=== PATIENT | male | born 1945 | race Caucasian/White ===

== ENCOUNTER 2020-09-17 06:54 | Day surgery (SDC) | payer MEDICARE, SELFPAY ==
[2020-09-04 14:11] VITALS: BMI 27.4
[2020-09-17 09:43] VITALS: BP 141/83; PULSE 65; RESP 18; TEMP 35.6; O2SAT 98; BMI 27.5
[2020-09-17] MEDS: LACTATED RINGERS 1,000 ML 150 ML IV CONT (09:52)
--- NOTE | 2020-09-17 10:05 | WPDGICN ---
Assessment and Plan Assessment and plan (1) Dysphagia: Code(s): R13.10 - Dysphagia, unspecified Status: Acute Assessment and Plan: Patient has difficulty swallowing. 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 Plan is for EGD to assess for recurrent narrowing of the esophagus. Possible dilatation will be performed. Further recommendations will be given after endoscopy. (2) Gastro-esophageal reflux disease without esophagitis: Code(s): K21.9 - Gastro-esophageal reflux disease without esophagitis Status: Acute Assessment and Plan: Patient known to have acid reflux. He has been maintained on omeprazole. He continues to have breakthrough heartburn despite this medication. Plan to assess this at time of EGD. Dose of omeprazole may need to be adjusted. Strict anti-reflux measures are encouraged. GI Consult Note Consult date/time: 09/17/20 10:05 HPI: Nnamdi Pollock Jr. is a 75 year old male Complains of difficulty swallowing. Patient initially had difficulty swallowing 2011 esophageal web was identified. Since that time he has been maintained on omeprazole daily. He states he sometimes will have extra heartburn that occurs rather frequently. He supplements the omeprazole with [id number] famotidine. patient recently has begun to note food catching in the chest on swallowing. This typically occurs while speaking and not taking his time. Sometimes this will happen with bread. Her large pieces of food. Patient presents today for follow-up EGD because of difficulty swallowing. He denies any weight loss or bleeding. Review of Systems Review of Systems: All systems reviewed & are unremarkable except as noted in HPI and below PMFSH Past Medical History Medical History (Updated 09/17/20 @ 10:06 by Chris Madsen MD) CAD (coronary artery disease) Family History Family History Mother Patient's mother is , Onset Age: 95 Father Patient's father is , Onset Age: 90 Grandparent Family history of malignant neoplasm of breast Social History Social History (Updated 08/15/20 @ 14:35 by Zenia Gilbert CMA) Smoking status: Never smoker Alcohol intake: never Substance use: never Substance use type: does not use Living arrangements: with family Spiritual care concerns: No Meds Home Medications and Allergies Home Medications Medication Instructions Recorded Confirmed Type omeprazole 20 mg capsule,delayed 20 mg PO DAILY 01/17/19 09/17/20 History release famotidine 20 mg tablet 10 mg PO DAILY 05/23/19 09/17/20 History naproxen sodium 220 mg capsule 440 mg PO DAILY PRN cap 05/23/19 09/17/20 History phenylephrine HCl 10 mg tablet 10 mg PO Q4-6H PRN 05/23/19 09/17/20 History triamcinolone acetonide 0.1 % 1 applic TOPICAL QID #80 gm 06/22/19 09/17/20 Rx topical cream triamterene 37.5 0.5 tablet PO QAM #90 tablet 07/20/19 09/17/20 Rx mg-hydrochlorothiazide 25 mg tablet finasteride 5 mg tablet 5 mg PO DAILY #90 tablet 10/22/19 09/17/20 Rx nitroglycerin 0.4 mg sublingual See Rx Instructions .ROUTE 08/28/20 09/17/20 Rx tablet .COMPLEX #25 tablet aspirin 325 mg PO DAILY 09/04/20 09/17/20 History metoprolol tartrate 50 mg PO DAILY 09/04/20 09/17/20 History simvastatin 40 mg PO DAILY 09/04/20 09/17/20 History Allergies Allergy/AdvReac Type Severity Reaction Status Date / Time cephalexin Allergy Intermediate Hives / Verified 09/17/20 09:42 Red Face Vital Signs Vital Signs - 24 hr 09/17/20 09:43 Temperature 96.1 F L Pulse Rate 65 Respiratory Rate 18 Blood Pressure 141/83 H Pulse Oximetry 98 Exam Narrative: Physical exam reveals patient to be alert. Vital signs are stable. HEENT exam is unremarkable. Patient is anicteric. Lungs are clear to auscultation and percussion. Heart is without murmur
--- NOTE | 2020-09-17 10:06 | WPDANESEPPF ---
Anes - Initial Pre Proc Eval Procedure: Operation Date: 09/17/20 10:30 Proposed Procedures p Esophagogastroduodenoscopy - Alex Rodriguez MD Date/Time: 09/17/20 10:06 Surgeon: Alex Rodriguez MD Pre Op Diagnosis: dysphagia Patient Data Age: 75 Gender: M Height: 1.65 m Weight: 75.1 kg Last Vital Signs Temp 35.6 C L 09/17/20 09:43 Pulse 65 09/17/20 09:43 Resp 18 09/17/20 09:43 BP 141/83 H 09/17/20 09:43 Pulse Ox 98 09/17/20 09:43 Allergies Allergy/AdvReac Type Severity Reaction Status Date / Time cephalexin Allergy Intermediate Hives / Verified 09/17/20 09:42 Red Face Home Medications Medication Instructions Recorded Confirmed Type omeprazole 20 mg capsule,delayed 20 mg PO DAILY 01/17/19 09/17/20 History release famotidine 20 mg tablet 10 mg PO DAILY 05/23/19 09/17/20 History naproxen sodium 220 mg capsule 440 mg PO DAILY PRN cap 05/23/19 09/17/20 History phenylephrine HCl 10 mg tablet 10 mg PO Q4-6H PRN 05/23/19 09/17/20 History triamcinolone acetonide 0.1 % 1 applic TOPICAL QID #80 gm 06/22/19 09/17/20 Rx topical cream triamterene 37.5 0.5 tablet PO QAM #90 tablet 07/20/19 09/17/20 Rx mg-hydrochlorothiazide 25 mg tablet finasteride 5 mg tablet 5 mg PO DAILY #90 tablet 10/22/19 09/17/20 Rx nitroglycerin 0.4 mg sublingual See Rx Instructions .ROUTE 08/28/20 09/17/20 Rx tablet .COMPLEX #25 tablet aspirin 325 mg PO DAILY 09/04/20 09/17/20 History metoprolol tartrate 50 mg PO DAILY 09/04/20 09/17/20 History simvastatin 40 mg PO DAILY 09/04/20 09/17/20 History Patient hx anesthesia problems: none Family hx anesthesia problems: none PMFSH Past Medical History Medical History (Updated 09/17/20 @ 10:06 by Chris Madsen MD) CAD (coronary artery disease) Family History Family History Mother Patient's mother is , Onset Age: 95 Father Patient's father is , Onset Age: 90 Grandparent Family history of malignant neoplasm of breast Social History Social History Smoking status: Never smoker Alcohol intake: never Substance use: never Substance use type: does not use Living arrangements: with family Spiritual care concerns: No Anes - Eval Final PreProcedure Day of Procedure 09/17/20 10:06 Patient weight: overweight Heart: regular rate and rhythm Lungs: clear to auscultation Airway: Mallampati scale class II Neurological: alert and oriented Last oral intake: >/= 8 hours ASA classification: III Emergent: no Anesthetic plan: proceed Anesthesia type and monitoring: general GIVS and standard monitoring Informed Consent: The patient's anesthetic plan and its attendant risks and benefits were discussed with the patient/family/POA. Questions were solicited and answers provided to the satisfaction of the patient/family/POA.
[2020-09-17] MEDS: BENZOCAINE (*SP) 60 ML SPRAY CAN (HURRICAINE) 1 SPRAY MUCOUS MEM (10:12)
[2020-09-17 10:25] VITALS: BP 137/76; PULSE 57; RESP 22; O2SAT 96
[2020-09-17 10:35] VITALS: BP 133/76; PULSE 55; RESP 20; O2SAT 96
[2020-09-17 10:45] VITALS: BP 141/84; PULSE 55; RESP 16; O2SAT 97
== END 2020-09-17 11:00 | disposition home or self-care (01) ==
PROVIDERS: PCP Family Medicine; Visit Provider Internal Medicine Gastroenterology
PROC: 0DJ08ZZ Inspection of Upper Intestinal Tract, Via Natural or Artificial Opening Endoscopic (ICD-10-PCS; CPT 43235; principal; 2020-09-17 10:30)
DX: Q39.4 Esophageal web (principal); K21.00 Gastro-esophageal reflux disease with esophagitis, without bleeding; I25.10 Atherosclerotic heart disease of native coronary artery without angina pectoris; Z79.82 Long term (current) use of aspirin
CPT/HCPCS: 43450; 43235; J7120

== ENCOUNTER 2021-03-30 15:22 | Observation (INO) | payer MEDICARE, SELFPAY ==
[2021-03-30] VITALS (12 sets, daily range): BP systolic 140–181; BP diastolic 80–97; PULSE 64–102; RESP 16–19; TEMP 36–36.7; O2SAT 97–99; BMI 27.6
--- NOTE | ~2021-03-30 | CT_ITS ---
EXAMINATION: CT lumbar spine wo con DATE: 03/30/2021 18:42 INDICATION: Low back pain TECHNIQUE: Computed tomography (CT) of the lumbar spine was performed without intravenous contrast. T he dose-length product (DLP) was 624.56 mGy-cm. Iterative reconstruction was used. COMPARISON: None FINDINGS: There are 2 mm of retrolisthesis of L2 on L3. The vertebral body heights are maintained. Th ere is severe loss of intervertebral disc space height throughout the lumbar spine and at T11-12. The re is moderate facet osteoarthritis. There are 25 degrees of lumbar dextroscoliosis. IMPRESSION: 1. Severe lumbar spondylosis without acute findings. Reviewed, dictated and finalized at location F. GATION SERVICES MANAGER
--- NOTE | ~2021-03-30 | CT_ITS ---
EXAMINATION: CT brain wo con INDICATION: Left-sided weakness COMPARISON: 01/26/2012 TECHNIQUE: Standard unenhanced head CT. The dose-length product (DLP) was 605.33 mGy-cm. The mA was a djusted according to patient size. Iterative reconstruction technique was employed. FINDINGS: There is no acute intraparenchymal hemorrhage. No evidence of mass lesion. There is hypoatt enuation in the anterior periventricular white matter of the left frontal lobe. There is mild periven tricular and subcortical hypodensity probably related to small vessel ischemic disease. There is mild prominence of the sulci and ventricles related to cerebral atrophy. Intracranial calcified cerebral atherosclerosis is noted. There are no extra-axial collections. There is no mass effect or midline sh ift. Changes in the globes are likely from ocular lens surgery. There is mild mucosal thickening of t he paranasal sinuses. IMPRESSION: 1. Hypoattenuation in the anterior periventricular white matter of the left frontal lobe, consistent with age indeterminate infarct. 2. Age related findings. Reviewed, dictated and finalized at location F. R SYSTEMS ADMINISTRATOR IMPRESSION: 1. Hypoattenuation in the anterior periventricular white matter of the left fro ntal lobe, consistent with age indeterminate infarct. 2. Age related findings.
--- NOTE | ~2021-03-30 | XR_ITS ---
EXAMINATION: XR chest 2V DATE: 03/30/2021 18:28 INDICATION: Left-sided weakness TECHNIQUE: PA and lateral views of the chest are obtained. COMPARISON: 10/26/2018 FINDINGS: The lungs are free of acute opacities. There is no pleural effusion or pneumothorax. The ca rdiomediastinal silhouette is normal. There is severe thoracic spondylosis. IMPRESSION: 1. No acute cardiopulmonary abnormality. Reviewed, dictated and finalized at location F. ATTACHER
--- NOTE | ~2021-03-30 | CT_ITS ---
EXAMINATION: CTA brain carotid DATE: 03/30/2021 19:46 INDICATION: Left-sided weakness, age indeterminate infarct TECHNIQUE: Computed tomographic angiography (CTA) of the head was performed without and with 100 mL O mnipaque-350 intravenous contrast. CTA of the neck was performed with intravenous contrast. The dose- length product was 1087.69 mGy-cm. Maximum intensity projection and volume rendered 3D-reconstruction s were created by the technologist on a separate workstation. Automated exposure control and iterativ e reconstruction technique were employed. COMPARISON: 03/29/2011 FINDINGS: HEAD CTA: There is no acute intraparenchymal hemorrhage. No evidence of mass lesion. A small area of hypoattenuation is again noted in the anterior periventricular white matter of the left frontal lobe. There is mild periventricular and subcortical hypodensity probably related to small vessel ischemic disease. There is mild prominence of the sulci and ventricles related to cerebral atrophy. Intracrani al calcified cerebral atherosclerosis is noted. There are no extra-axial collections. There is no mas s effect or midline shift. Changes in the globes are likely from ocular lens surgery. The visualized sinuses and mastoid air cells are well aerated. There is no significant stenosis of the basilar artery or posterior cerebral arteries. There is no si gnificant stenosis of the intracranial internal carotid arteries or the anterior or middle cerebral a rteries. The anterior communicating artery and posterior communicating arteries are normal. There is no aneurysm. NECK CTA: The thyroid gland is unremarkable. The submandibular and parotid glands are symmetric. Ther e is no lymphadenopathy. There are no masses identified. The airway is unremarkable. There is severe cervical spondylosis. The superior mediastinum is unremarkable. There is 0% stenosis of the proximal right internal carotid artery relative to normal distal artery l umen diameter (NASCET criteria). There is 49% stenosis of the proximal left internal carotid artery r elative to normal distal artery lumen diameter. IMPRESSION: 1. Unchanged small area of hypoattenuation in the anterior periventricular white matter of the left f rontal lobe. Normal head CTA. 2. 0% stenosis of the proximal right internal carotid artery relative to normal distal artery lumen d iameter (NASCET criteria). 3. 49% stenosis of the proximal left internal carotid artery relative to normal distal artery lumen d iameter. Reviewed, dictated and finalized at location F. TRACK KENNEL MANAGER IMPRESSION: 1. Unchanged small area of hypoattenuation in the anterior periventricular whit e matter of the left frontal lobe. Normal head CTA. 2. 0% stenosis of the proximal right internal carotid artery relative to normal distal artery lumen diameter (NASCET criteria). 3. 49% stenosis of the proximal left internal carotid artery relative to normal distal artery lumen diameter.
--- NOTE | ~2021-03-30 | MR_ITS ---
EXAMINATION: MR brain/brain stem wo con EXAM DATE: 03/31/2021 10:19 INDICATION: LLE/LUE weakness TECHNIQUE: Magnetic resonance imaging (MRI) of the brain/brain stem obtained without contrast. Liam al T1, axial diffusion, gradient echo (T2*), T1, T2, FLAIR sequences obtained. Correlation is made t o CTA brain carotid from yesterday. FINDINGS: There is 4 x 10 mm acute infarction in the right centrum semiovale, frontoparietal white ma tter. Small old infarction involving the left anterior aspect of the corpus callosum. There is mild t o moderate white matter hyperintensity which is nonspecific but statistically most likely microangiop athy given patient's age. Flow voids are seen in the cerebral arteries on the T2 weighted sequences c onsistent with their expected patency. There is no acute hemorrhage seen on the T2*, a susceptibility sensitive sequence. Bilateral cataract surgery. Dilated perivascular spaces in the deep goel matter . No brain mass or extra-axial collections. No obstructive hydrocephalus. IMPRESSION: 1. Small acute right centrum semiovale infarction. 2. 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 3. 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 Reviewed, dictated and finalized at location A. LIANCE TECHNICIAN
--- NOTE | 2021-03-30 15:58 | PC.NURSE ---
pt seen ambulating in parking lot aware from hospital. danie schwartz, stated patient told her he was going to get his medicine. danie schwartz, told patient we were unable to hold patient spot if he left.
--- NOTE | 2021-03-30 16:34 | PC.NURSE ---
pt noted to be back in lobby
--- NOTE | 2021-03-30 18:07 | ECG_ITS ---
Measurements Intervals [place] Rate: 82 P: 43 MT: 271 QRS: 29 QRSD: 107 T: 4 QT: 376 QTc: 441 Interpretive Statements SINUS RHYTHM WITH FIRST DEGREE AV BLOCK POSSIBLE LEFT ATRIAL ENLARGEMENT CANNOT RULE OUT SEPTAL INFARCT, AGE INDETERMINATE BORDERLINE ST-T WAVE ABNORMALITY- INFERIOR LEADS BASELINE ARTIFACT- AVR, V1 ABNORMAL ECG Electronically Signed On 03-31-2021 10:14:35 RECORD PRODUCER by Lalo Hernández D.O.
--- NOTE | 2021-03-30 18:18 | ED.WEAKNESS ---
HPI - Weakness General Chief complaint: Weakness <Rafaela Ambrocio PA-C - Last Filed: 03/30/21 20:07> Stated complaint: L side weakness since yesterday morning <HEIDI Saini Last Filed: 03/30/21 20:07> Time Seen by Provider: 03/30/21 18:06 <HEIDI Saini Last Filed: 03/30/21 20:07> Source: patient <HEIDI Saini Last Filed: 03/30/21 20:07> Mode of arrival: ambulatory <HEIDI Saini Last Filed: 03/30/21 20:07> Limitations: no limitations <HEIDI Saini Last Filed: 03/30/21 20:07> History of Present Illness HPI Narrative: This is a 75 year old male that presents to the ER for left sided weakness since yesterday. Reports he has noticed some coordination problems with the left arm. Reports he feels like he has to drag his left leg. He called his PCP to make an appointment today who prompted him to be seen in the ER. No recent injuries. Denies vision changes, chest pain, shortness of breath, or other numbness or weakness. <HEIDI Saini Last Filed: 03/30/21 20:07> Related Data Home medications: Home Medications Medication Instructions Recorded Confirmed omeprazole 20 mg capsule,delayed 20 mg PO DAILY 01/17/19 12/23/20 release aspirin 325 mg PO DAILY 09/04/20 12/23/20 simvastatin 40 mg PO DAILY 09/04/20 12/23/20 <HEIDI Saini Last Filed: 03/30/21 20:07> Allergies/Adverse reactions: Allergies Allergy/AdvReac Type Severity Reaction Status Date / Time cephalexin Allergy Intermediate Hives / Verified 12/23/20 11:51 Red Face <HEIDI Saini Last Filed: 03/30/21 20:07> Review of Systems Review of Systems: CONSTITUTIONAL: Denies fever EYES: Denies visual changes CARDIOVASCULAR: Denies chest pain, or edema. RESPIRATORY: Denies dyspnea. GASTROINTESTINAL: Denies abdominal pain, nausea, vomiting GENITOURINARY: Denies dysuria MUSCULOSKELETAL: Reports back pain, joint pain, and myalgia. NEUROLOGIC: Reports weakness. <Rafaela Ambrocio PA-C - Last Filed: 03/30/21 20:07> All systems reviewed & are unremarkable except as noted in HPI and below <Rafaela Ambrocio PA-C - Last Filed: 03/30/21 20:07> [facility] Past Medical History Medical History: Medical History (Updated 03/30/21 @ 20:06 by Rafaela Ambrocio PA-C) Abnormal TSH Abnormal TSH CAD (coronary artery disease) <Rafaela Ambrocio PA-C - Last Filed: 03/30/21 20:07> Family History Family History: Family History Mother Patient's mother is , Onset Age: 95 Father Patient's father is , Onset Age: 90 Grandparent Family history of malignant neoplasm of breast <Rafaela Ambrocio PA-C - Last Filed: 03/30/21 20:07> Social History Social History: Social History Smoking status: Never smoker Alcohol intake: never Substance use: never Substance use type: does not use Spiritual care concerns: No <Rafaela Ambrocio PA-C - Last Filed: 03/30/21 20:07> Exam Narrative: GENERAL: Well-appearing, well-nourished, and in no acute distress. HEAD: Normocephalic, atraumatic. EYES: PERRLA and EOMI. ENT: Nares clear, no rhinorrhea or epistaxis. Mucous membranes moist. Oropharynx without tonsillar hypertrophy exudate or other lesions. Bilateral TMs pearly goel non-bulging NECK: Supple. No adenopathy or masses. CHEST: Clear to auscultation. No respiratory distress. No wheezes rales or rhonchi HEART: Regular rate and rhythm. No murmur heard. Normal peripheral pulses. ABDOMEN: Soft, nontender, nondistended, normal active bowel sounds. EXTREMITIES: Normal range of motion. No edema. Strength equal in bilateral upper and lower extremities (5/5) SKIN: Warm, dry, no rash. NEURO: No focal deficits. Alert and oriented x3. Cranial nerves II through XII grossly intact. Difficulty with finger-to-
[2021-03-30 18:32] LABS: Basophils Percent Auto 0.4 % (0.2-1.2); Eosinophils Absolute Auto 0.2 K/mm3 (0-0.3); Eosinophils Percent Auto 1.8 % (0-4.4); Hemoglobin 15.9 g/dL (14.0-18.0); Immature Granulocyte Absolute 0.07 K/mm3 (0.00-0.031); Immature Granulocyte Percent A 0.8 % (0-0.5); Lymphocytes Absolute Auto 1.32 K/mm3 (0.9-3.2); Lymphocytes Percent Auto 15.8 % (18.3-44.2); Mean Corpuscular HGB Conc 33.1 g/dl (32-36); Mean Corpuscular Hemoglobin 30.2 pg (26-34); Mean Corpuscular Volume 91.3 fl (80-100); Mean Platelet Volume 10.2 fl (7.4-10.4); Monocytes Absolute Auto 0.7 K/mm3 (0.1-0.6); Monocytes Percent Auto 8.3 % (2.6-8.5); Neutrophils Absolute Auto 6.1 K/mm3 (1.3-6.7); Neutrophils Percent Auto 72.9 % (45.5-73.1); Platelet Count Result 240 k/mm3 (150-375); Red Blood Count 5.26 M/mm3 (4.6-6.20); Red Cell Distribution Width 12.8 % (11.5-14.5); White Blood Count 8.4 K/mm3 (4.5-10.0)
[2021-03-30 18:51] LABS: Alanine Aminotransferase 33 U/L (4-50); Albumin Level 4.8 g/dL (3.5-5.1); Alkaline Phosphatase 87 U/L (38-126); Anion Gap 6 mmol/L (8-16); Aspartate Amino Transferase 41 U/L (17-59); Bilirubin,Total 0.7 mg/dL (0.2-1.3); Blood Urea Nitrogen 27 mg/dL (9-20); Calcium 9.9 mg/dL (8.4-10.2); Carbon Dioxide 28 mmol/L (22-30); Chloride 102 mmol/L (98-107); Estimated CRCL calculation 53 ml/min; Estimated Glomerular Filt Rate > 60; Glucose 102 mg/dL (65-110); Potassium 3.8 mmol/L (3.4-5.0); Sodium 136 mmol/L (137-145)
--- NOTE | 2021-03-30 19:38 | PM.IMHP ---
H&P: HPI History of Present Illness Date/Time: 03/30/21 19:38 Chief Complaint: Left lower extremity weakness. Narrative: [age]-year-old male history significant for sciatica, hypertension, dyslipidemia, GERD. PATIENT PRESENTS TO THE EMERGENCY ROOM WITH COMPLAINTS OF LEFT-SIDED WEAKNESS SPECIFICALLY LEFT LOWER EXTREMITY AND LEFT UPPER EXTREMITY. However upon further questioning patient states that he has sciatica and had shooting pain in going down his leg earlier in the week at the time of my visit patient did not have any overuse weakness as he was able to stand up on his on and take couple of steps patient has been his usual state of health he denies any fevers, rigors ,chills ,cough, sputum production, nausea, vomiting, abdominal pain, diarrhea ,no dizziness ,no syncope, no near syncope, no vision changes, no chest pain, no palpitations, no falls ,no urinary incontinence or fecal incontinence or retention. Preliminary workup was significant for CT of the head with age indeterminate infarct. Imaging of the pelvis shows severe spondylosis and spinal stenosis. Patient is being admitted for evaluation management and treatment. Review of Systems Review of Systems: Left-sided weakness Constitutional: Constitutional: Denies chills, Denies fatigue, Denies fever(s), Denies malaise, Denies night sweats and Reports weakness Eyes: Eyes: Denies change in vision ENT: Denies dysphagia, Denies vertigo, Denies dizziness, Denies headache(s), Denies nasal congestion, Denies nasal discharge, Denies nasal obstruction and Denies odynophagia Cardiovascular: Cardiovascular: Denies chest pain, Denies pedal edema, Denies claudication, Denies leg edema, Denies radiating jaw, neck or arm pain, Denies palpitations, Denies dyspnea on exertion and Denies orthopnea Respiratory: Respiratory: Denies cough and Denies dyspnea Gastrointestinal: Gastrointestinal: Denies abdominal pain, Denies dyspepsia, Denies heartburn, Denies diarrhea, Denies nausea and Denies vomiting Genitourinary: Genitourinary: Denies dysuria Musculoskeletal: Musculoskeletal: Denies back pain, Denies arthralgias, Denies joint swelling, Reports muscle weakness and Reports radiating pain into limb (Sciatica) Integumentary/Breasts: Skin/Breast: Denies rash Neurologic: Denies abnormal gait, Denies vertigo, Denies dizziness, Denies syncope, Denies focal weakness, Reports radicular pain and Denies Sensory deficit (Neuro) Psychiatric: Psychiatric: Reports no additional psychiatric complaints and Reports as per HPI Endocrine: Endocrine: Denies cold intolerance, Denies deepening of the voice, Denies heat intolerance, Denies increase in ring/shoe/hat size, Denies polyphagia, Denies polydipsia and Denies polyuria Hematologic/Lymphatic: Hematologic/Lymphatic: Reports no additional hematologic/lymphatic complaints and Reports as per HPI Allergic/Immunologic: Allergic/Immunologic: Reports no additional allergic/immunologic complaints and Reports as per HPI [facility] Past Medical History Medical History (Updated 03/30/21 @ 20:06 by Rafaela Ambrocio PA-C) Abnormal TSH Abnormal TSH CAD (coronary artery disease) Family History Family History Mother Patient's mother is , Onset Age: 95 Father Patient's father is , Onset Age: 90 Grandparent Family history of malignant neoplasm of breast Social History Social History Smoking status: Never smoker Alcohol intake: never Substance use: never Substance use type: does not use Spiritual care concerns: No Meds Home Medications and Allergies Home Medications Medication Instructions Recorded Confirmed Type omeprazole 20 mg capsule,delayed 40 mg PO DAILY 01/17/19 03/30/21 History release finasteride 5 mg tablet 5 mg PO DAILY #90 tablet 10/22/19 03/30/21 Rx nitroglycerin 0.4 mg sublingual See Rx I
[2021-03-30] MEDS: METOPROLOL SUCCINATE EXT REL 50 MG TABCR PO (19:58)
[2021-03-30 20:13] LABS: Prothrombin Time 13.2 Seconds (11.1-14.7)
[2021-03-30 20:14] LABS: Partial Thromboplastin Time 32.2 SECONDS (22.3-36.8)
[2021-03-30 20:25] LABS: Add Urine Microscopic? NO; Appearance Urine Clear (Clear); Bilirubin Urine Negative (Negative); Blood Urine Negative (Negative); Color Urine Straw (Yellow); Glucose Urine UA Negative (Negative); Ketones Urine Negative (Negative); Leukocyte Esterase Ur Negative LEU/UL (Negative); Nitrate Urine Negative (Negative); Protein Urine Negative (Negative); Urobilinogen Urine Negative mg/dL (<2.0)
[2021-03-30 20:52] LABS: SARS-CoV-2 RNA PCR Negative
--- NOTE | 2021-03-30 22:50 | ADMGEN ---
This patient, Nnamdi Pollock Jr., was admitted to Medical Room 251-01. Patient/family oriented to hospital policies and general routines including ID bracelet, bed and alarms, visiting hours, pain management, procedures, bathroom and other care routines, personal items, smoking policy, room service/diet, and visiting hours. Information on how to activate the Rapid Response Team has been discussed. Patient/Family are encouraged to report perceived risks to care and to ask questions if they do not understand what they are told or what they should do.
[2021-03-31] VITALS (10 sets, daily range): BP systolic 137–160; BP diastolic 64–73; PULSE 56–71; RESP 16–17; TEMP 36.4–36.6; O2SAT 97–99
--- NOTE | 2021-03-31 | ECHO_ITS ---
Patient Info Name: Nnamdi Pollock Age: 75 years : 1945 Gender: Male Ht: 65 in Wt: 166 lbs BSA: 1.88 m2 HR: 65 bpm BP: 137 / 64 mmHg Heart Rhythm: Sinus Rhythm Exam Date: 03/31/2021 11:48 AM Exam Location: [facility] Patient Status: Outpatient Admit Date: 03/30/2021 Staff Ordering Physician: Gordy Moya MD Photographer Still: Jak Mejia, MELODYCS, RT Attending Provider: Tremayne Delarosa MD Exam Type: CA echo doppler color flow Study Info Indications I63.219 - Cerebral infarction due to unspecified occlusion or stenosis of unspecified vertebral arteries Complete two-dimensional, color flow and Doppler transthoracic echocardiogram is performed. Strain analysis performed. Summary 1. Complete two-dimensional, color flow and Doppler transthoracic echocardiogram is performed. 2. LV size is at upper limits of normal; sigmoid hypertrophy; normal LV systolic function, ejection fraction 55-60%. Normal diastolic function. Mild left atrial enlargement. Normal mitral valve structure, no significant MR. Normal aortic valve structure, mild aortic regurgitation; no hemodynamically significant stenosis. Trace TR, unable to assess RVSP due to inadequate TR jet. Sinus rhythm. Left Ventricle Left ventricular chamber dimension is normal. Left ventricular systolic function is normal, estimated at 55-60%. There is no increased left ventricular wall thickness. The left ventricular diastolic function is grade I diastolic dysfunction. Right Ventricle Right ventricular chamber dimension is normal. Right ventricular systolic function is normal. Left Atria Left atrial chamber dimension is mildly enlarged. Right Atria Right atrial chamber dimension is normal. Aortic Valve There is no aortic valve stenosis. There is mild aortic valve regurgitation. Pulmonic Valve The pulmonic valve is not well visualized. There is trace pulmonic regurgitation. Mitral Valve The mitral valve has normal leaflets. There is no mitral valve regurgitation. Tricuspid Valve The tricuspid valve leaflets are normal. There is trace tricuspid valve regurgitation. Pericardium/Pleural The pericardium appears normal. There is trivial pericardial effusion. Aorta The aortic root size at the sinus of Valsalva is normal. Left Ventricular Outflow Tract Name Value Normal LVOT 2D LVOT Diameter 2.0 cm LVOT Doppler LVOT Peak Gradient 7 mmHg LVOT Mean Gradient 4 mmHg LVOT VTI 29 cm LVOT VTI/AV VTI Ratio 0.9 LVOT Stroke Volume 95 ml LVOT CO 5.7 l/min LVOT CI 3.0 l/min/m2 Mitral Valve Name Value Normal MV Doppler MV Decel [place] 333 cm/s2
--- NOTE | 2021-03-31 09:22 | PM.IMPN ---
Progress Note: A&P Assessment and Plan (1) CVA (cerebral vascular accident): Qualifiers: CVA mechanism: unspecified Qualified Code(s): I63.9 - Cerebral infarction, unspecified Code(s): I63.9 - Cerebral infarction, unspecified Status: Acute Assessment and Plan: presents with left lower extremity weakness, +/- upper extremity weakness questionable stroke not a candidate for tPA or vascular intervention Already on aspirin 325 mg daily and statin at home. Will check A1c and lipid profile Consider adding Plavix MRI of the brain ordered and pending. If negative for stroke likely due to with exacerbation of his chronic back pain which will need outpatient evaluation For the stroke workup with echo Head CT with small area of hypoattenuation in the anterior periventricular white matter of the left frontal lobe Head and neck CTA with 49% left ICA 0% right ICA Neurology has been consulted await their recommendations Blood pressure was elevated on admission to allow permissive hypertension EKG with sinus rhythm with first-degree AV block (2) Hypertension: Qualifiers: Hypertension type: unspecified Qualified Code(s): I10 - Essential (primary) hypertension Code(s): I10 - Essential (primary) hypertension Status: Acute Assessment and Plan: elevated on admission Allow permissive hypertension until stroke ruled out Need long-term blood pressure control with goal blood pressure less than 130/80 (3) Essential (primary) hypertension: Code(s): I10 - Essential (primary) hypertension Status: Acute (4) Atherosclerotic heart disease of [place] coronary artery without angina pectoris: Qualifiers: [place] vs. transplanted heart: [place] heart Qualified Code(s): I25.10 - Atherosclerotic heart disease of [place] coronary artery without angina pectoris Code(s): I25.10 - Atherosclerotic heart disease of [place] coronary artery without angina pectoris Status: Acute Assessment and Plan: history of coronary artery disease status post stents right coronary artery January of 2012. Chest pain-free (5) Mixed hyperlipidemia: Code(s): E78.2 - Mixed hyperlipidemia Status: Acute Assessment and Plan: Continue statin Lipid profile 05/28: 139/ 53/63/ 148 Recheck lipid profile LDL at goal of less than 70 ( 63 ) (6) Gastro-esophageal reflux disease without esophagitis: Code(s): K21.9 - Gastro-esophageal reflux disease without esophagitis Status: Acute Assessment and Plan: PPI as needed (7) Lumbar spondylosis: Code(s): M47.816 - Spondylosis without myelopathy or radiculopathy, lumbar region Status: Acute Assessment and Plan: severe noted on lumbar CT done on 03/30/2021 Additional Plan History of mild hypertrophic cardiomyopathy Subjective Date/time seen: 03/31/21 09:22 Interval history: HPI:[age]-year-old male history significant for sciatica, hypertension, dyslipidemia, GERD. PATIENT PRESENTS TO THE EMERGENCY ROOM WITH COMPLAINTS OF LEFT-SIDED WEAKNESS SPECIFICALLY LEFT LOWER EXTREMITY AND LEFT UPPER EXTREMITY. However upon further questioning patient states that he has sciatica and had shooting pain in going down his leg earlier in the week at the time of my visit patient did not have any overuse weakness as he was able to stand up on his on and take couple of steps patient has been his usual state of health he denies any fevers, rigors ,chills ,cough, sputum production, nausea, vomiting, abdominal pain, diarrhea ,no dizziness ,no syncope, no near syncope, no vision changes, no chest pain, no palpitations, no falls ,no urinary incontinence or fecal incontinence or retention. Preliminary workup was significant for CT of the head with age indeterminate infarct. Imaging of the pelvis shows severe spondylosis and spinal stenosis. Patient is being admitted for evaluation management and treatment.
[2021-03-31 09:58] LABS: Cholesterol 161 mg/dL (0-200); HDL Direct 46 mg/dL; Triglycerides 168 mg/dL (<150)
[2021-03-31 10:09] LABS: LDL Cholesterol Direct 85 mg/dL
[2021-03-31 10:33] LABS: Hemoglobin A1C 5.5 % (<5.7)
[2021-03-31] MEDS: FINASTERIDE 5 MG TABLET PO (12:13)
[2021-03-31] MEDS: MULTIVITAMINS THERAPEUTIC TAB (*BKC) 1 TABLET BY MOUTH (12:13)
[2021-03-31] MEDS: PANTOPRAZOLE 40 MG TABLET PO (12:13)
[2021-03-31] MEDS: TRIAMTERENE/HCTZ 18.75/12.5 MG TABLET 1 TAB BY MOUTH (12:13)
[2021-03-31] MEDS: ASPIRIN 325 MG TABLET PO (12:13)
[2021-03-31] MEDS: CALCIUM CARBONATE (OSCAL) 500 MG TABLET PO (12:13)
--- NOTE | 2021-03-31 12:21 | WPDNEURCNPN ---
Assessment and Plan Additional Plan 1 cerebrovascular accident documented by the CT scan as well as the MRI 2 hypertension 3 intermittent chronic low back pain with spinal spondylosis without stenosis to warrant the acute surgical intervention, patient has been receiving aspirin 325 mg daily, simvastatin 40 mg HS, will obtain the echocardiogram to rule out the possibility of the coincidental cardiac involvement in meantime treatment will be continued as such, Consult date: 03/31/21 HPI: Nnamdi Pollock Jr. is a 75 year old male Has been admitted to [facility] through the emergency room for the complaints of left lower extremity pain and weakness in addition to the ongoing history of 1. Hypertension 2. Dyslipidemia 3. GERD, and with no history of smoking or drinking. Patient complained of the weakness of left lower extremity and left upper extremity but on further questioning in the emergency room he mentioned that his he is suffering from sciatica and shooting pain down to his lower extremity in this week he was able to stand and take a couple of steps and gave no history of any other generalized symptomatology. 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 and small acute right cerebellar semi ov[place] infarction and the lumbar CT scan documented severe lumbar spondylosis without any acute finding only 2mm of retro listhesis of L2 on L3, routine blood studies were normal except that SARS-CoV-2 aid was also negative Review of Systems Review of Systems: All systems reviewed & are unremarkable except as noted in HPI and below PMFSH Past Medical History Medical History Abnormal TSH Abnormal TSH CAD (coronary artery disease) Family History Family History Mother Patient's mother is , Onset Age: 95 Father Patient's father is , Onset Age: 90 Grandparent Family history of malignant neoplasm of breast Social History Social History Smoking status: Never smoker Alcohol intake: never Substance use: never Substance use type: does not use Spiritual care concerns: No Meds Home Medications and Allergies Home Medications Medication Instructions Recorded Confirmed Type omeprazole 20 mg capsule,delayed 40 mg PO DAILY 01/17/19 03/30/21 History release finasteride 5 mg tablet 5 mg PO DAILY #90 tablet 10/22/19 03/30/21 Rx nitroglycerin 0.4 mg sublingual See Rx Instructions .ROUTE 08/28/20 03/30/21 Rx tablet .COMPLEX #25 tablet aspirin 325 mg PO DAILY 09/04/20 03/30/21 History simvastatin 40 mg PO HS 09/04/20 03/30/21 History triamterene 37.5 See Rx Instructions .ROUTE 12/19/20 03/30/21 Rx mg-hydrochlorothiazide 25 mg tablet .COMPLEX #45 tablet metoprolol succinate 50 mg 50 mg PO DAILY #90 tablet 12/23/20 03/30/21 Rx tablet,extended release 24 hr Complete Multi 1 tablet BYMOUTH DAILY 03/30/21 03/30/21 History Suphedrine PE Sinus andAllergy 1 tablet PO Q4-5H PRN 03/30/21 03/30/21 History calcium 600 mg PO DAILY 03/30/21 03/30/21 History Allergies Allergy/AdvReac Type Severity Reaction Status Date / Time cephalexin Allergy Intermediate Hives / Verified 12/23/20 11:51 Red Face Vital Signs Vital Signs - 24 hr 03/30/21 15:33 03/30/21 17:16 03/30/21 18:15 Temperature 36.7 C 36.5 C Pulse Rate 102 H 86 86 Respiratory Rate 19 16 Blood Pressure 161/92 H 166/95 H 181/97 H Pulse Oximet
--- NOTE | 2021-03-31 16:02 | PC.NURSE ---
On 03/11/21, the student, Sukhwinder Davis provided care and completed [employer] documentation on this patient. I have reviewed the student's documentation and agree with the findings
[2021-03-31] MEDS: SIMVASTATIN 20 MG TABLET 40 MG PO (21:00)
[2021-04-01] VITALS (8 sets, daily range): BP systolic 133–138; BP diastolic 73–78; PULSE 61–81; RESP 16–17; TEMP 36.4–36.6; O2SAT 97–98
[2021-04-01 06:14] LABS: Basophils Percent Auto 0.5 % (0.2-1.2); Eosinophils Absolute Auto 0.3 K/mm3 (0-0.3); Eosinophils Percent Auto 4.4 % (0-4.4); Hematocrit 47.9 % (42.0-52.0); Hemoglobin 15.9 g/dL (14.0-18.0); Immature Granulocyte Absolute 0.08 K/mm3 (0.00-0.031); Lymphocytes Absolute Auto 1.72 K/mm3 (0.9-3.2); Lymphocytes Percent Auto 22.4 % (18.3-44.2); Mean Corpuscular HGB Conc 33.2 g/dl (32-36); Mean Corpuscular Hemoglobin 30.3 pg (26-34); Mean Corpuscular Volume 91.2 fl (80-100); Mean Platelet Volume 10.3 fl (7.4-10.4); Monocytes Absolute Auto 0.7 K/mm3 (0.1-0.6); Monocytes Percent Auto 9.5 % (2.6-8.5); Neutrophils Absolute Auto 4.8 K/mm3 (1.3-6.7); Neutrophils Percent Auto 62.2 % (45.5-73.1); Platelet Count Result 228 k/mm3 (150-375); Red Blood Count 5.25 M/mm3 (4.6-6.20); White Blood Count 7.7 K/mm3 (4.5-10.0)
[2021-04-01 06:33] LABS: Alanine Aminotransferase 27 U/L (4-50); Albumin Level 4.4 g/dL (3.5-5.1); Alkaline Phosphatase 75 U/L (38-126); Anion Gap 6 mmol/L (8-16); Aspartate Amino Transferase 35 U/L (17-59); Bilirubin,Total 1.1 mg/dL (0.2-1.3); Blood Urea Nitrogen 21 mg/dL (9-20); Calcium 9.4 mg/dL (8.4-10.2); Carbon Dioxide 31 mmol/L (22-30); Chloride 100 mmol/L (98-107); Estimated CRCL calculation 48 ml/min; Estimated Glomerular Filt Rate > 60; Glucose 102 mg/dL (65-110); Potassium 4.2 mmol/L (3.4-5.0); Sodium 137 mmol/L (137-145)
[2021-04-01] MEDS: ASPIRIN 325 MG TABLET PO (08:30)
[2021-04-01] MEDS: METOPROLOL SUCCINATE EXT REL 50 MG TABCR PO (08:31)
[2021-04-01] MEDS: CALCIUM CARBONATE (OSCAL) 500 MG TABLET PO (08:31)
[2021-04-01] MEDS: TRIAMTERENE/HCTZ 18.75/12.5 MG TABLET 1 TAB BY MOUTH (08:31)
[2021-04-01] MEDS: MULTIVITAMINS THERAPEUTIC TAB (*BKC) 1 TABLET BY MOUTH (08:31)
[2021-04-01] MEDS: FINASTERIDE 5 MG TABLET PO (08:31)
[2021-04-01] MEDS: PANTOPRAZOLE 40 MG TABLET PO (08:32)
--- NOTE | 2021-04-01 10:59 | PM.DS ---
DS: Admitting Diagnosis Discharge Date 04/01/2021 Admitting Diagnosis Left upper and lower extremity weakness DS: Discharge Diagnosis Discharge Diagnosis (1) CVA (cerebral vascular accident): Qualifiers: CVA mechanism: unspecified Qualified Code(s): I63.9 - Cerebral infarction, unspecified Code(s): I63.9 - Cerebral infarction, unspecified Status: Acute Assessment and Plan: presents with left lower extremity weakness, +/- upper extremity weakness not a candidate for tPA or vascular intervention Already on aspirin 325 mg daily and statin at home. Check A1c which was normal in lipid profile with LDL of 85 MRI of the brain ordered and showed acute infarct in right centrum semiovale. His symptoms aligns with noted infarction. CTA with 49% stenosis in left ICA not relating to current stroke. Echocardiogram with no PFO or thrombus. He is already on aspirin 325 mg daily while getting the stroke. No history of smoking Discussed addition of Plavix with the patient and agreeable Will lower aspirin to 81 mg daily and continue Plavix 75 mg daily at the time of discharge. LDL is 85 the goal LDL will be less than 7 T due to his new stroke. She is he is currently on simvastatin 40 mg daily. Will suggest at least moderate to high intensity statin and will switch to atorvastatin [address] with small area of hypoattenuation in the anterior periventricular white matter of the left frontal lobe Head and neck CTA with 49% left ICA 0% right ICA Neurology has been consulted and appreciate his recommendations Blood pressure was elevated on admission to allow permissive hypertension blood pressure has been fluctuant he also takes Sudafed on a regular basis for his sinuses and suggested this medication could cause or exacerbate hypertension and should avoid using does if at all possible. I also suggested to discuss alternatives with your his primary care physician. Now I have suggested adding Flonase nasal spray for sinuses and decongestion as an alternative for his symptoms. EKG with sinus rhythm with first-degree AV block PT OT evaluate the patient and suggested outpatient therapy Which Is ordered at the time of discharge (2) Hypertension: Qualifiers: Hypertension type: unspecified Qualified Code(s): I10 - Essential (primary) hypertension Code(s): I10 - Essential (primary) hypertension Status: Acute Assessment and Plan: elevated on admission Allow permissive hypertension until stroke ruled out Need long-term blood pressure control with goal blood pressure less than 130/80 (3) Essential (primary) hypertension: Code(s): I10 - Essential (primary) hypertension Status: Acute (4) Atherosclerotic heart disease of [place] coronary artery without angina pectoris: Qualifiers: [place] vs. transplanted heart: [place] heart Qualified Code(s): I25.10 - Atherosclerotic heart disease of [place] coronary artery without angina pectoris Code(s): I25.10 - Atherosclerotic heart disease of [place] coronary artery without angina pectoris Status: Acute Assessment and Plan: history of coronary artery disease status post stents right coronary artery January of 2012. Chest pain-free (5) Mixed hyperlipidemia: Code(s): E78.2 - Mixed hyperlipidemia Status: Acute Assessment and Plan: Continue statin Lipid profile 05/28: 139/ 53/63/ 148 Recheck lipid profile LDL at goal of less than 70 ( 63 ) (6) Gastro-esophageal reflux disease without esophagitis: Code(s): K21.9 - Gastro-esophageal reflux disease without esophagitis Status: Acute Assessment and Plan: PPI as needed (7) Lumbar spondylosis: Code(s): M47.816 - Spondylosis without myelopathy or radiculopathy, lumbar region Status: Acute Assessment and Plan: severe noted on lumbar CT done on 03/30/2021 DS: Summary Hospital Course Hospital Course:
--- NOTE | 2021-04-01 11:08 | PCOTNOTE ---
patient declined secondary to being d/c today. Patient reports no need for assistance with ADLs or mobility, patient intends to drive himself home. Patient not seen for OT.
== END 2021-04-01 13:05 | disposition home or self-care (01) ==
LOC: ANHED 20:06 → ANH2MED 22:44
PROVIDERS: Physician Assistant; Admitting Provider Internal Medicine; Emergency Provider General Practice; PCP Family Medicine; Visit Provider Internal Medicine
DX: I63.9 Cerebral infarction, unspecified (principal); G81.94 Hemiplegia, unspecified affecting left nondominant side; M47.816 Spondylosis without myelopathy or radiculopathy, lumbar region; I44.0 Atrioventricular block, first degree; I10 Essential (primary) hypertension; I25.10 Atherosclerotic heart disease of native coronary artery without angina pectoris; E78.2 Mixed hyperlipidemia; E78.5 Hyperlipidemia, unspecified; K21.9 Gastro-esophageal reflux disease without esophagitis; Z79.82 Long term (current) use of aspirin; Z86.73 Personal history of transient ischemic attack (TIA), and cerebral infarction without residual deficits; Z20.822 Contact with and (suspected) exposure to COVID-19; Z79.899 Other long term (current) drug therapy
CPT/HCPCS: 36415; 70450; 70496; 70498; 70551; 71046; 72131; 80053; 80061; 81003; 83036; 85025; 85610; 85730; 93005; 93306; 97161; 97165; 99285; A9270; C9803; G0378; Q9967; U0003; U0005

== ENCOUNTER 2021-04-21 10:30 | Outpatient (RCR) | payer MEDICARE, SELFPAY ==
--- NOTE | 2021-04-21 10:36 | PTOPEVAL ---
PHYSICAL THERAPY INITIAL EVALUATION AND DISCHARGE NOTE Thank you for referring Nnamdi Pollock Jr. to [facility]. Please review, sign, date and return this plan of care GRACIELA. I agree with and certify that the following plan of care is medically necessary. Referring Physician Date Attending Provider: Gordy Moya MD *PT Outpatient Evaluation Start: 04/21/21 Evaluation Information Diagnosis CVA Subjective Information Pt states he woke up on Text:As Reported By Patient/ and had difficultly Family reaching a cup out of an overhead cabinet, he also states he had to drag his leg that morning. He states he has a pinched nerve so sharp pain and a heavy L leg is nothing new for him. He went to the ED on 03/30/21. Pt states he went on a 2 mile walk this morning. Pt reports he has returned to his baseline 100%. Pain Assessment Left Lower Back Reported Pain Level 0 Pain Description Sharp,Shooting Pain Radiation Left Leg Pain Frequency Chronic,Intermittent Lowest Pain Intensity 0 Greatest Pain Intensity 7 Lower Extremity Range of Motion General Lower Extremity Range of Motion WFL/Left,WFL/Right Lower Extremity Muscle Strength Testing Gross Lower Extremity Strength B LE strength 4+/5 L hip flexion 4/5 Posture Head/C-Spine Posture Forward Head Thoracic Spine Posture Flattened,Rotation Right Lumbar Spine Posture Flattened,Rotation Right Weight Distribution Weight Shifted Right,Weight Shifted Anterior Hip Posture (L) Flexed,(R) Flexed Balance Assessment Russell Balance Assessment RUSSELL Balance Evaluation Total Score 54/56 Comments Pt reports increased in back pain with most activities, pt reports he is limited in his forward reach due to pain. 5 Time Sit to Stand Time in Seconds 12 5 Time Sit to Stand Comments Without use of UEs Gait Assessment Gait Pattern Observed Trunk Flexed,Trunk Lateral Lean - Right Other Gait Observations Lack of terminal knee extension bilaterally, lack of terminal hip extension bilaterally 2 Minute Walk Total Distance [place]
--- NOTE | 2021-04-21 11:14 | OTOPEVAL ---
OCCUPATIONAL THERAPY EVALUATION REPORT AND DISCHARGE SUMMARY 04/21/21 Nnamdi was referred to outpatient OT with the dx of CVA. All testing today shows patient has excellent return of functional strength and coordination of his left/affected side. He is independent with ADLs and driving. No further skilled OT indicated at this time. Thank you for referring Nnamdi Pollock Jr. to [facility]. Please review, sign, date and return this D/C Note GRACIELA. I agree with and certify that the following plan of care is medically necessary. Referring Physician Date Referring Provider: Gordy Moya MD *OT Outpatient Evaluation Start: 04/21/21 10:34 Therapy Assessment Status Assessment Status Assessment Status Evaluation Outpatient Past Medical History Neurological History Hx Neurological Disorders No Significant History Cardiovascular History Hx Coronary Stent Yes: one stent - no blood thinners Hx Hypercholesterolemia Yes Hx Hypertension Yes Hx Other Cardiac Disorders Yes: hx nitroglycerin Respiratory History Hx Respiratory Disorders No Significant History Gastrointestinal History Hx Gastroesophageal Reflux Disease Yes Genitourinary History Hx Other Genitourinary Disorders Yes: hx finasteride use Musculoskeletal History Hx Musculoskeletal Disorders No Significant History Hematological History Hx Hematological Disorders No Significant History Endocrine History Hx Endocrine Disorders No Significant History HEENT History Hx Sinus Problems Yes Integumentary History Hx Skin Disorders No Significant History Reproductive History Hx Reproductive Disorders No Significant History Psychosocial History Hx Psychiatric Disorders No Significant History Pain History History of Any Previous or Ongoing No Significant History Instance of Pain Anesthesia History Hx Anesthesia Reactions No Significant History Evaluation Information Problem Diagnosis CVA Subjective Information Pt states he woke up on Text:As Reported By Patient/ and had difficultly Family reaching a cup out of an overhead cabinet, he also states he had to drag his leg that morning. He states he has a pinched nerve in his lower back, so sharp pain and a heavy L leg is nothing new for him. He went to the ED on . Pt states he went on a 2 mile walk this morning. Pt reports he has returned to his baseline 100%. He reports no difficulties with ADLs. He lives alone and has re
== END 2021-04-22 09:00 | disposition home or self-care (01) ==
LOC: ANHOT 10:30
PROVIDERS: PCP Family Medicine; Visit Provider Internal Medicine
DX: I63.9 Cerebral infarction, unspecified (principal)
CPT/HCPCS: 97161; 97165

== ENCOUNTER 2021-07-09 14:45 | Outpatient (RCR) | payer MEDICARE, SELFPAY ==
--- NOTE | 2021-05-20 13:47 | PTOPEVAL ---
PHYSICAL THERAPY INITIAL EVALUATION. Thank you for referring Nnamdi Pollock to [facility].? The patient is scheduled to be seen for therapy? 2x/week for 4 weeks. Please review, sign, date and return this plan of care GRACIELA. I agree with and certify that the following plan of care is medically necessary. Referring Physician Date Attending Provider: Antonio Zimmerman PA-C *PT Outpatient Evaluation Start: 05/20/21 Evaluation Information Diagnosis Low back pain Onset 4 years Subjective Information Pt states he has a sharp pain Query Text:As Reported By Patient/ in his lower back on the last Family side. He states occasionally he will get a sharp pain that runs down his buttock and down to his knee. He states his pain fluctuates over the years but he always has some pain. Pt states usually the pain is just in his back and a few times a day it will shoot into his legs. Pt states he walks for exercise at [facility] so he can lean onto the cart. Pain Assessment Lower Back Reported Pain Level 0 Pain Radiation Left Leg Greatest Pain Intensity 5 Cervical and Lumbar ROM Lumbar ROM Lumbar Flexion Active Mid Paula Lumbar Extension (0-40) 0 active Lumbar Lateral Flexion Right (0-40) 20 active Lumbar Lateral Flexion Left (0-40) 20 active Lateral Flexion Able to reach lateral knee Query Text:Active Hands to: joint line bilaterally Lumbar ROM 50% of Normal Lumbar Comments Unable to acheive completely upright posture. pt complains of pain with every ROM measurement Lower Extremity Muscle Strength Testing Gross Lower Extremity Strength B LE grossly 4+/5 L glute med 2/5 R glute med 2+/5 B hip extension 3/5 Muscle Length Testing Brock Test Shortened Muscles Short (R) Iliopsoas,Short (L) Iliopsoas,Short (R) Rectus Femoris,Short (L) Rectus Femoris,Short (R) Ilial Tib Band,Short (L) Ilial Tib Band Two-Joint Hip Flexor Shortened Muscles Short (R) Iliopsoas,Short (L) Iliopsoas,Short (R) Rectus Femoris,Short (L) Rectus Femoris Piriformis w/Hip Fle
--- NOTE | 2021-06-15 14:56 | PTOPEVAL ---
PHYSICAL THERAPY PROGRESS NOTE. Thank you for referring Nnamdi Krystle Pollock Jr. to [facility].? The patient is scheduled to be seen for therapy? 2x/week for 4 weeks. Please review, sign, date and return this plan of care GRACIELA. I agree with and certify that the following plan of care is medically necessary. Referring Physician Date Attending Provider: Antonio Zimmerman PA-C *PT Outpatient Evaluation Start: 05/20/21 Evaluation Information Problem Diagnosis Low back pain Onset 4 years Subjective Information Pt states his back is starting Query Text:As Reported By Patient/ to feel better. He states the Family sharp pains have decreased. He states he can sit with his legs crossed, which he used to not be able to do. Pain Assessment Self Report Pain Assessment Lower Back Reported Pain Level 1 Pain Description Soreness Greatest Pain Intensity 6 Cervical and Lumbar ROM Lumbar ROM Lumbar Flexion Active Mid Paula Lumbar Extension (0-40) 10 Lumbar Lateral Flexion Right (0-40) 40 Lumbar Lateral Flexion Left (0-40) 40 Query Text:Active in Degrees Lateral Flexion Able to reach lateral knee Query Text:Active Hands to: joint line bilaterally Lateral Rotation Right (0-45) 20 Lateral Rotation Left (0-45) 20 Lumbar ROM 75% of Normal Lumbar Comments Mild discomfort reported with lateral rotation to the L Lower Extremity Muscle Strength Testing Gross Lower Extremity Strength B LE grossly 4+/5 L glute med 2/5 R glute med 2+/5 B hip extension 3/5 Muscle Length Testing Brock Test Shortened Muscles Short (R) Iliopsoas,Short (L) Iliopsoas,Short (R) Rectus Femoris,Short (L) Rectus Femoris,Short (R) Ilial Tib Band,Short (L) Ilial Tib Band Two-Joint Hip Flexor Shortened Muscles Short (R) Iliopsoas,Short (L) Iliopsoas,Short (R) Rectus Femoris,Short (L) Rectus Femoris Left Hamstring Length -40 Right Hamstring Length -40 Right Prone Knee Flexor Muscle Length ( 60 Left Prone Knee Flexor Muscle Length ( 60 Posture Posture Evaluation View Posterior Head/C-Spine Posture Side Bent Right,Forward Head Thoracic Spine Posture Flattened Lumbar Spine Posture Flattened Pelvis Posture
--- NOTE | 2021-07-09 15:46 | PTOPEVAL ---
PHYSICAL THERAPY PROGRESS REPORT AND DISCHARGE SUMMARY. Thank you for referring Nnamdi Pollock to [facility] The patient is to be discharged from skilled physical therapy services at this time. Please review, sign, date and return this plan of care GRACIELA. I agree with and certify that the following plan of care is medically necessary. Referring Physician Date Attending Provider: Antonio Zimmerman PA-C Evaluation Information Diagnosis Low back pain Onset 4 years Subjective Information Pt states he thinks his back Query Text:As Reported By Patient/ pain has gotten better. He Family states he is getting better at remembering to stand up tall. Pt states he still moves the wrong way and will get a sharp pain. Pain Assessment Pain Score 0: Self Report Lumbar ROM Lumbar Flexion Active Mid Paula Lumbar Extension (0-40) 30 Lumbar Lateral Flexion Right (0-40) 40 Lumbar Lateral Flexion Left (0-40) 40 Lateral Flexion Able to reach lateral knee Query Text:Active Hands to: joint line bilaterally Lateral Rotation Right (0-45) 30 Lateral Rotation Left (0-45) 30 Lumbar ROM 75% of Normal Lumbar Comments Mild discomfort reported with lateral rotation to the L Lower Extremity Range of Motion General Lower Extremity Range of Motion WFL/Left,WFL/Right Lower Extremity Muscle Strength Testing Gross Lower Extremity Strength B LE grossly 4+/5 L glute med 2/5 R glute med 2+/5 B hip extension 3+/5 Muscle Length Testing Brock Test Shortened Muscles Short (R) Iliopsoas,Short (L) Iliopsoas,Short (R) Rectus Femoris,Short (L) Rectus Femoris,Short (R) Ilial Tib Band,Short (L) Ilial Tib Band Two-Joint Hip Flexor Shortened Muscles Short (R) Iliopsoas,Short (L) Iliopsoas,Short (R) Rectus Femoris,Short (L) Rectus Femoris Piriformis w/Hip Flexion >90 Degrees (L) Moderate Tightness Left Hamstring Length -40 Right Hamstring Length -40 Right Prone Knee Flexor Muscle Length ( 80 Left Prone Knee Flexor Muscle Length ( 70 Posture Posture Evaluation View Posterior Head/C-Spine Posture Side Bent Right,Forward Head Thoracic Spine Posture Flattened Lumbar Spine Posture Flattened Pelvis Posture Anteriorly Tilted,(L) Rotated
== END 2021-07-10 09:46 | disposition home or self-care (01) ==
LOC: ANHPT 14:45
PROVIDERS: PCP Family Medicine; Visit Provider Physician Assistant
DX: M47.816 Spondylosis without myelopathy or radiculopathy, lumbar region (principal)
CPT/HCPCS: 97110; 97112; 97161; 97530

== ENCOUNTER 2021-08-25 11:15 | Emergency (ER) | payer MEDICARE, SELFPAY ==
[2021-08-25 11:36] VITALS: BP 148/111; PULSE 81; RESP 18; TEMP 36.3; O2SAT 99
--- NOTE | 2021-08-25 12:26 | ED.SKABFB ---
HPI - Skin/Abscess/Foreign Bdy General Chief complaint: Skin/Abscess/Foreign Body Stated complaint: Rash Time Seen by Provider: 08/25/21 12:16 Source: patient Mode of arrival: ambulatory Limitations: no limitations History of Present Illness HPI narrative: Patient presents today with a rash to his left arm x3 weeks that has been worsening since onset. Denies pain, but does report some mild itching. He has been using Neosporin, triamcinolone, and Bactine without relief. Related Data Home Medications Medication Instructions Recorded Confirmed omeprazole 20 mg capsule,delayed 40 mg PO DAILY 01/17/19 08/25/21 release Complete Multi 1 tablet BYMOUTH DAILY 03/30/21 08/25/21 calcium 600 mg PO DAILY 03/30/21 08/25/21 Allergies Allergy/AdvReac Type Severity Reaction Status Date / Time cephalexin Allergy Intermediate Hives / Verified 08/25/21 11:55 Red Face Review of Systems Review of Systems: CONSTITUTIONAL: Denies body aches, fever, chills, or sweats. EYES: Denies visual changes, redness, or discharge. ENT: Denies rhinorrhea, congestion, sore throat, or otalgia. CARDIOVASCULAR: Denies chest pain, palpitations, or edema. RESPIRATORY: Denies cough or dyspnea. GASTROINTESTINAL: Denies abdominal pain, nausea, vomiting, or diarrhea. GENITOURINARY: Denies dysuria or hematuria. SKIN: Denies wounds.+ Rash MUSCULOSKELETAL: Denies back pain, joint pain, or myalgia. NEUROLOGIC: Denies headache, numbness, tingling, or weakness. PSYCH: Denies depression or anxiety. [facility] Past Medical History Medical History Abnormal TSH Abnormal TSH CAD (coronary artery disease) Family History Family History Mother Patient's mother is , Onset Age: 95 Father Patient's father is , Onset Age: 90 Grandparent Family history of malignant neoplasm of breast Social History Social History Smoking status: Never smoker Alcohol intake: never Substance use: never Substance use type: does not use Spiritual care concerns: No Comments At time of signature, I have reviewed and agree with nursing past medical, surgical, social and family history unless otherwise noted. Please see nursing chart for further information. There is no relevant family history pertinent to the presenting complaint Exam Narrative: GENERAL: Well-appearing, well-nourished, and in no acute distress. HEAD: Normocephalic, atraumatic. EYES: EOMI. No redness or drainage. Conjunctivae normal. ENT: Mucous membranes pink and moist. NECK: Normal AROM. CHEST: No respiratory distress. EXTREMITIES: Normal range of motion. No edema. SKIN: Warm, dry. Capillary refill normal. Normal skin turgor. 8 x 14 cm area of erythematous maculopapular rash with central clearing to the left antecubital fossa. NEURO: No focal deficits. Alert and oriented x3. Gait steady. PSYCH: Normal affect. No signs of depression or anxiety. Course Course Level of Care: Express Care Visit Vital Signs Vital signs: Vital Signs Temperature 97.4 F L 08/25/21 11:36 Pulse Rate 81 08/25/21 11:36 Respiratory Rate 18 08/25/21 11:36 Blood Pressure 148/111 H 08/25/21 11:36 Pulse Oximetry 99 08/25/21 11:36 Oxygen Delivery Room Air 08/25/21 11:36 Temperature 97.4 F L 08/25/21 11:36 Pulse Rate 81 08/25/21 11:36 Respiratory Rate 18 08/25/21 11:36 Blood Pressure 148/111 H 08/25/21 11:36 Pulse Oximetry 99 08/25/21 11:36 Oxygen Delivery Room Air 08/25/21 11:36 Reviewed. Pt has been instructed to follow up with his PCP regarding his elevated blood pressure today. Recheck BP 160/82. MDM - Skin/Abscess/Foreign Bdy Differential Diagnosis Differential diagnosis: Likely viral exanthem, dermatophytosis, urticaria, cellulitis, eczema, insect b
[2021-08-25 12:31] VITALS: BP 160/82
== END 2021-08-25 12:35 | disposition home or self-care (01) ==
PROVIDERS: Emergency Provider Nurse Practitioner; PCP Family Medicine
DX: B35.4 Tinea corporis (principal); I25.10 Atherosclerotic heart disease of native coronary artery without angina pectoris
CPT/HCPCS: 99211; G0463

== ENCOUNTER 2021-09-04 14:05 | Emergency (ER) | payer MEDICARE, SELFPAY ==
--- NOTE | 2021-09-04 14:13 | ED.SKABFB ---
HPI - Skin/Abscess/Foreign Bdy General Chief complaint: Skin/Abscess/Foreign Body Stated complaint: RingWorm Time Seen by Provider: 09/04/21 14:31 Source: patient and RN notes reviewed Mode of arrival: ambulatory Limitations: no limitations History of Present Illness HPI narrative: 76-year-old male presents for follow-up for rash. Reports he was seen on August 25 and diagnosed with ringworm. He has been using half Lotrimin and half hydrocortisone on the area since that appointment. He reports the area has improved, and is not itchy. He would like to find out if he can discontinue the hydrocortisone cream and only use the Lotrimin at this time. MD complaint: rash Related Data Home Medications Medication Instructions Recorded Confirmed omeprazole 20 mg capsule,delayed 40 mg PO DAILY 01/17/19 08/25/21 release Complete Multi 1 tablet BYMOUTH DAILY 03/30/21 08/25/21 calcium 600 mg PO DAILY 03/30/21 08/25/21 Allergies Allergy/AdvReac Type Severity Reaction Status Date / Time cephalexin Allergy Intermediate Hives / Verified 09/04/21 14:08 Red Face Review of Systems Review of Systems: CONSTITUTIONAL: Denies malaise, chills, sweats, or fever. EYES: Denies redness, or discharge. ENT: Denies rhinorrhea, congestion, swollen lips, swollen tongue CARDIOVASCULAR: Denies chest pain, palpitations, or edema. RESPIRATORY: Denies cough or dyspnea. GASTROINTESTINAL: Denies abdominal pain, nausea, vomiting SKIN: Reports rash in the left antecubital space MUSCULOSKELETAL: Denies joint pain or myalgia. NEUROLOGIC: Denies headache. All systems reviewed & are unremarkable except as noted in HPI and below PMFSH Past Medical History Medical History Abnormal TSH Abnormal TSH CAD (coronary artery disease) Family History Family History Mother Patient's mother is , Onset Age: 95 Father Patient's father is , Onset Age: 90 Grandparent Family history of malignant neoplasm of breast Social History Social History Smoking status: Never smoker Alcohol intake: never Substance use: never Substance use type: does not use Spiritual care concerns: No Comments At time of signature, agree with nursing past medical, surgical, social and family history. There is no relevant family history pertinent to the presenting complaint Exam Narrative: GENERAL: Well-appearing, well-nourished, and in no acute distress. HEAD: Normocephalic, atraumatic. EYES: PERRLA, conjunctivae clear, and EOMI. ENT: Mucous membranes moist. Oropharynx without edema, erythema or lesions. NECK: Supple. No lymphadenopathy CHEST: Clear to auscultation. No respiratory distress. HEART: Regular rate and rhythm. SKIN: Warm, dry. Approximately 12 x 6 annular erythema noted in the left antecubital space without raised papules, plaque NEURO: Alert and oriented x3. PSYCH: Normal mood and affect Course Course Emergency Course: Patient is aware of diagnosis, understands and agrees to treatment plan. Anticipatory guidance given. Patient agrees to follow-up as directed and is aware of reasons to seek care at the emergency department. Portions of this record may have been created with voice recognition software Level of Care: Express Care Visit Vital Signs Vital signs: Reviewed. MDM - Skin/Abscess/Foreign Bdy MDM Narrative Medical decision making narrative: Does not appear at this time to be erythema multiforme, bullous, SJS, TEN; no evidence at this time to suggest RMSF, endocarditis or Lyme disease; patient looks well, nontoxic and is tolerating oral intake; no neurologic signs or symptoms; no headache, photophobia or neck pain; afebrile; appropriate for initial outpatient treatment; discussed the importance of follow-up, patient agrees; que
[2021-09-04 14:17] VITALS: BP 157/90; PULSE 96; RESP 18; TEMP 35.9; O2SAT 100
== END 2021-09-04 14:45 | disposition home or self-care (01) ==
PROVIDERS: Emergency Provider Nurse Practitioner
DX: Z09 Encounter for follow-up examination after completed treatment for conditions other than malignant neoplasm (principal); I25.10 Atherosclerotic heart disease of native coronary artery without angina pectoris
CPT/HCPCS: 99211; G0463

== ENCOUNTER → 2021-11-24 01:49 | Outpatient (CLI) | payer MEDICARE, SELFPAY ==
[2021-11-24 12:12] LABS: SARS-CoV-2 RNA PCR Positive
== END ==
PROVIDERS: PCP Family Medicine; Visit Provider Family Medicine
DX: U07.1 COVID-19 (principal)
CPT/HCPCS: C9803; U0003; U0005

== ENCOUNTER 2022-08-19 09:28 | Outpatient (CLI) | payer MEDICARE, SELFPAY ==
[2022-08-19 14:42] LABS: Alanine Aminotransferase 42 U/L (6-50); Albumin Level 4.6 g/dL (3.5-5.1); Alkaline Phosphatase 82 U/L (38-126); Anion Gap 7 mmol/L (8-16); Aspartate Amino Transferase 61 U/L (17-59); Bilirubin,Total 0.9 mg/dL (0.2-1.3); Blood Urea Nitrogen 18 mg/dL (9-20); Calcium 9.5 mg/dL (8.4-10.2); Carbon Dioxide 29 mmol/L (22-30); Chloride 102 mmol/L (98-107); Cholesterol 128 mg/dL (0-200); Estimated Glomerular Filt Rate > 60; Glucose 90 mg/dL (65-110); HDL Direct 38 mg/dL; Potassium 3.9 mmol/L (3.4-5.0); Sodium 138 mmol/L (137-145); Triglycerides 166 mg/dL (<150)
[2022-08-19 14:53] LABS: LDL Cholesterol Direct 55 mg/dL
[2022-08-19 15:06] LABS: Prostate Specific Antigen 0.3 ng/mL (< OR = 4.0)
== END 2022-08-19 09:29 | disposition home or self-care (01) ==
LOC: ANHGOSHLAB 09:29
PROVIDERS: PCP Family Medicine; Visit Provider Family Medicine
DX: Z13.220 Encounter for screening for lipoid disorders (principal); Z12.5 Encounter for screening for malignant neoplasm of prostate; Z13.228 Encounter for screening for other metabolic disorders
CPT/HCPCS: 36415; 80053; 80061; 84153; G0103

== ENCOUNTER 2022-12-25 19:45 | Observation (INO) | payer MEDICARE, SELFPAY ==
[2022-12-25] VITALS (30 sets, daily range): BP systolic 106–162; BP diastolic 61–103; PULSE 41–66; RESP 12–22; TEMP 36.3; O2SAT 94–99
--- NOTE | ~2022-12-25 | XR_ITS ---
EXAMINATION: XR chest 1V portable Exam Date/Time: 12/25/2022 21:25 COAL HAULER HISTORY: bradycardia COUGH WITH DIZZINESS AND WEAKNESS Comparison: 03/30/2021. RESULT: Lines, tubes, and devices: None. Lungs and pleura: Senescent change, otherwise clear. Cardiomediastinal silhouette: Stable. Other: No acute osseous or upper abdominal finding. IMPRESSION: No acute cardiopulmonary process. Reviewed, dictated and finalized at location K. HAULER
--- NOTE | 2022-12-25 20:49 | ECG_ITS ---
Measurements Intervals [place] Rate: 49 P: IA: 0 QRS: 19 QRSD: 97 T: 5 QT: 449 QTc: 408 Interpretive Statements SINUS RHYTHM WITH SECOND DEGREE AV BLOCK, TYPE I CANNOT RULE OUT SEPTAL INFARCT, AGE INDETERMINATE BASELINE ARTIFACT- I, III, AVR, AVL, AVF, V1-V3, V5-V6 ABNORMAL ECG COMPARED TO ECG 03/30/2021 19:23:28 SECOND DEGREE AV BLOCK, TYPE I NOW PRESENT Electronically Signed On 12-25-2022 21:07:39 [employer] TECHNICIAN by Lalo Hernández D.O.
[2022-12-25 21:04] LABS: Basophils Percent Auto 0.4 % (0.2-1.2); Eosinophils Absolute Auto 0.2 K/mm3 (0-0.3); Hematocrit 41.1 % (42.0-52.0); Hemoglobin 13.6 g/dL (14.0-18.0); Immature Granulocyte Percent A 1.3 % (0-0.5); Lymphocytes Absolute Auto 1.19 K/mm3 (0.9-3.2); Lymphocytes Percent Auto 15.1 % (18.3-44.2); Mean Corpuscular HGB Conc 33.1 g/dl (32-36); Mean Corpuscular Hemoglobin 30.2 pg (26-34); Mean Corpuscular Volume 91.3 fl (80-100); Mean Platelet Volume 9.9 fl (7.4-10.4); Monocytes Absolute Auto 0.7 K/mm3 (0.1-0.6); Monocytes Percent Auto 9.3 % (2.6-8.5); Neutrophils Absolute Auto 5.6 K/mm3 (1.3-6.7); Neutrophils Percent Auto 70.9 % (45.5-73.1); Platelet Count Result 225 k/mm3 (150-375); Red Cell Distribution Width 12.9 % (11.5-14.5); White Blood Count 7.9 K/mm3 (4.5-10.0)
[2022-12-25 21:13] LABS: Alanine Aminotransferase 35 U/L (6-50); Albumin Level 4.3 g/dL (3.5-5.1); Alkaline Phosphatase 90 U/L (38-126); Anion Gap 8 mmol/L (8-16); Aspartate Amino Transferase 35 U/L (17-59); Bilirubin,Total 0.6 mg/dL (0.2-1.3); Blood Urea Nitrogen 23 mg/dL (9-20); Calcium 9.2 mg/dL (8.4-10.2); Carbon Dioxide 26 mmol/L (22-30); Chloride 102 mmol/L (98-107); Estimated CRCL calculation 52 ml/min; Estimated Glomerular Filt Rate > 60; Glucose 100 mg/dL (65-110); Potassium 3.7 mmol/L (3.4-5.0); Sodium 136 mmol/L (137-145)
--- NOTE | 2022-12-25 21:21 | ED.GENADULT ---
HPI - General Adult General Chief complaint: Dizziness Stated complaint: Dizzyx3 days, not feeling well Time Seen by Provider: 12/25/22 20:43 Source: patient and family Limitations: no limitations History of Present Illness HPI narrative: Patient is a 77-year-old male presents to the emergency department for intermittent near syncopal episodes. Patient states for the past approximately 2-3 days he has been feeling lightheaded when he is up walking around and this often goes away when he rests. Patient admits to decreased water intake and has been feeling slightly dehydrated. Patient denies any chest pain, shortness of breath, cough, fever, recent injuries, recent illness, abdominal pain, nausea, vomiting, new or change medications. Patient admits to history of heart disease and has a stent in his heart is noted Dr. Ace. Patient admits to taking all his medications as prescribed. Patient denies any focal weakness or numbness. Family does admit to the patient having a remote conversation about the possibility of a pacemaker. Related Data Home Medications Medication Instructions Recorded Confirmed Complete Multi 1 tablet BYMOUTH DAILY 03/30/21 10/18/22 calcium 600 mg PO DAILY 03/30/21 10/18/22 Allergies Allergy/AdvReac Type Severity Reaction Status Date / Time cephalexin Allergy Intermediate Hives / Verified 10/18/22 12:09 Red Face Review of Systems Review of Systems: A 10 system review of systems was completed on the patient and is negative except for what is stated in the HPI. Nursing and ancillary documentation was reviewed. [facility] Past Medical History Medical History Abnormal TSH Abnormal TSH CAD (coronary artery disease) Fungal toenail infection Family History Family History Mother Patient's mother is , Onset Age: 95 Father Patient's father is , Onset Age: 90 Grandparent Family history of malignant neoplasm of breast Social History Social History Smoking status: Never smoker Alcohol intake: never Substance use: never Substance use type: does not use Lack of Transportation: No Lack of Food: Never True Current Housing: I Have Housing Concerned About Future Housing: No Difficulty Paying Gas/Electric Bills: No Difficulty Paying for Meds: No Currently Unemployed: No Education: Bachelor's Degree Difficulty w/ Childcare or Family Care: No Living arrangements: alone Occupation/Education: retired Gender identity (if verbalized by the patient): Male Spiritual care concerns: No Agree to blood products: Yes Comments At time of signature, I have reviewed and agree with nursing past medical, surgical, social and family history unless otherwise noted. Please see the nursing chart for further information. There is no relevant family history pertinent to the presenting complaint. Exam Narrative: CONST: No acute distress. On the cardiac tech patient is primarily in the low 50s for heart rate with a narrow complex and does appear to have a prolonged ID interval with intermittently drop beats and did drop as low as the mid 40s throughout my evaluation. HENMT: Head is normocephalic and atraumatic. Tacky mucous membranes. No posterior oropharynx erythema. EYES: No conjunctival icterus, injection, or pallor. PERRL. No nystagmus. NECK: No meningeal signs. No thyroid tenderness to palpation or palpable thyromegaly. RESP: Able to speak in full sentences. Normal respiratory effort. CTAB. CARDIO: Bradycardic rate. Regular rhythm. 2+ DP and radial pulses bilaterally. GI: Nondistended. No tenderness to palpation. Soft. : No CVA tenderness to palpation. SKIN: No rashes or lesions noted on exposed skin. NEURO: Oriented x3. Moves all extremities. No focal neurologica
[2022-12-25] MEDS: SODIUM CHLORIDE 0.9% IV 1,000 ML 999 ML IV CONT (21:50)
[2022-12-25 21:58] LABS: Troponin I < 0.012 ng/mL (0.000-0.034)
--- NOTE | 2022-12-25 22:30 | PM.IMHP ---
H&P: HPI History of Present Illness Date/Time: 12/25/22 22:30 Chief Complaint: dizziness Narrative: EXAMINATION:? XR chest 1V portable Exam Date/Time:? 12/25/2022 21:25 [facility] ST[facility]ER HISTORY: bradycardia? COUGH WITH DIZZINESS AND WEAKNESS ? Comparison:? 03/30/2021. RESULT: Lines, tubes, and devices:? None. Lungs and pleura:? Senescent change, otherwise clear. Cardiomediastinal silhouette:? Stable. Other:? No acute osseous or upper abdominal finding. ? IMPRESSION: No acute cardiopulmonary process. Review of Systems Review of Systems: dizzi Constitutional: Constitutional: Denies chills, Denies fatigue, Denies fever(s), Denies frequent falls, Denies malaise, Denies night sweats, Denies poor appetite and Denies weakness Eyes: Eyes: Denies change in vision ENT: Denies dysphagia, Reports dizziness and Denies odynophagia Cardiovascular: Cardiovascular: Denies chest pain, Denies syncope, Denies leg edema, Denies radiating jaw, neck or arm pain, Denies palpitations and Denies dyspnea Respiratory: Respiratory: Denies cough, Denies dyspnea and Denies wheezing Gastrointestinal: Gastrointestinal: Denies abdominal pain, Denies dyspepsia, Denies heartburn, Denies nausea and Denies vomiting Genitourinary: Genitourinary: Denies dysuria Musculoskeletal: Musculoskeletal: Denies arthralgias Integumentary/Breasts: Skin/Breast: Denies rash Neurologic: Denies focal weakness and Denies Sensory deficit (Neuro) Psychiatric: Psychiatric: Reports no additional psychiatric complaints and Reports as per HPI Endocrine: Endocrine: Denies cold intolerance, Denies flushing, Denies heat intolerance, Denies polyphagia, Denies polydipsia and Denies palpitations Hematologic/Lymphatic: Hematologic/Lymphatic: Reports no additional hematologic/lymphatic complaints and Reports as per HPI Allergic/Immunologic: Allergic/Immunologic: Reports no additional allergic/immunologic complaints and Reports as per HPI PMFSH Past Medical History Medical History Abnormal TSH Abnormal TSH CAD (coronary artery disease) Fungal toenail infection Family History Family History Mother Patient's mother is , Onset Age: 95 Father Patient's father is , Onset Age: 90 Grandparent Family history of malignant neoplasm of breast Social History Social History Smoking status: Never smoker Alcohol intake: never Substance use: never Substance use type: does not use Lack of Transportation: No Lack of Food: Never True Current Housing: I Have Housing Concerned About Future Housing: No Difficulty Paying Gas/Electric Bills: No Difficulty Paying for Meds: No Currently Unemployed: No Education: Bachelor's Degree Difficulty w/ Childcare or Family Care: No Living arrangements: alone Occupation/Education: retired Gender identity (if verbalized by the patient): Male Spiritual care concerns: No Agree to blood products: Yes Meds Home Medications and Allergies Home Medications Medication Instructions Recorded Confirmed Type Complete Multi 1 tablet BYMOUTH DAILY 03/30/21 10/18/22 History calcium 600 mg PO DAILY 03/30/21 10/18/22 History finasteride 5 mg tablet See Rx Instructions .Route 08/03/22 10/18/22 Rx .COMPLEX #90 tabs omeprazole 20 mg capsule,delayed 40 mg PO DAILY #60 caps 08/09/22 10/18/22 Rx release triamterene 37.5 0.5 tablet PO QAM #45 tabs 08/27/22 10/18/22 Rx mg-hydrochlorothiazide 25 mg tablet atorvastatin 40 mg tablet 40 mg PO HS #30 tabs 09/02/22 10/18/22 Rx metoprolol tartrate 50 mg tablet See Rx Instructions .Route 09/23/22 10/18/22 Rx .COMPLEX #90 tabs nitroglycerin 0.4 mg sublingual See Rx Instructions .Route 11/01/22 Rx tablet .COMPLEX #25 tabs clopidogrel 75 mg tablet (Plavix) 75 mg PO DA
--- NOTE | 2022-12-25 23:32 | PC.NURSE ---
Report received from MECHE Moreno. Assumed care of patient at this time.
[2022-12-26] VITALS (28 sets, daily range): BP systolic 108–148; BP diastolic 41–108; PULSE 45–88; RESP 12–24; TEMP 36.3–37.3; O2SAT 95–100
[2022-12-26] MEDS: SODIUM CHLORIDE 0.9% IV 1,000 ML 125 ML IV CONT ×3 (00:12→16:23)
--- NOTE | 2022-12-26 03:15 | ADMGEN ---
This patient, Nnamdi Pollock Jr., was admitted to IMU Room 200-01. Patient/family oriented to hospital policies and general routines including ID bracelet, bed and alarms, visiting hours, pain management, procedures, bathroom and other care routines, personal items, smoking policy, room service/diet, and visiting hours. Information on how to activate the Rapid Response Team has been discussed. Patient/Family are encouraged to report perceived risks to care and to ask questions if they do not understand what they are told or what they should do.
[2022-12-26 03:29] LABS: Troponin I < 0.012 ng/mL (0.000-0.034)
--- NOTE | 2022-12-26 10:04 | PM.CNCAR ---
Assessment and Plan Assessment and plan (1) AV block, [place] 1: Code(s): I44.1 - Atrioventricular block, second degree Status: Acute Assessment and Plan: Patient presents with dizziness, lightheadedness and near-syncope was found to have episodic second-degree AV block type 1. Telemetry overnight showed a few beats of type 2 AV block while asleep but this morning he is back in sinus rhythm with a first-degree AV block. I have explained to the patient that this is due to his aging cardiac electrical system, aggravated by metoprolol. Likely this will progress with time and can be episodic. Is quite possible he will need a pacemaker at some time, but we may be able to avoid one for now if we discontinue the metoprolol. At at least of this morning, a temporary or permanent pacemaker is not necessary. I think the best option is to discontinue metoprolol and follow closely. --DC metoprolol (I believe the last dose was yesterday morning) --observe on telemetry at least overnight --possible discharge tomorrow if no high-degree AV block or symptomatic second-degree AV block is seen --outpatient monitoring after discharge (2) Near syncope: Code(s): R55 - Syncope and collapse Status: Acute Assessment and Plan: Near syncope, not due to dehydration but to 2nd degree AV block. (3) Atherosclerotic heart disease of [place] coronary artery without angina pectoris: Qualifiers: [place] vs. transplanted heart: [place] heart Qualified Code(s): I25.10 - Atherosclerotic heart disease of [place] coronary artery without angina pectoris Code(s): I25.10 - Atherosclerotic heart disease of [place] coronary artery without angina pectoris Status: Acute Assessment and Plan: History of CAD, stable with no angina. (4) Hypertrophic cardiomyopathy: Code(s): I42.2 - Other hypertrophic cardiomyopathy Status: Acute Assessment and Plan: Hypertrophic cardiomyopathy, prominent murmur, including a murmur of mitral regurgitation. No MR noted by echo in 03/2021. Asymptomatic with no GRACE. --check echo, in case patient does need pacemaker soon, to reassess LV fxn. (5) Hypertension: Qualifiers: Hypertension type: unspecified Qualified Code(s): I10 - Essential (primary) hypertension Code(s): I10 - Essential (primary) hypertension Status: Acute Assessment and Plan: BP somewhat elevated, and since we are discontinuing metoprolol we will change to another antihypertensive. --start lisinopril 5 mg daily History of Present Illness History of Present Illness Consult date/time: 12/26/22 10:04 Reason For Visit: Symptomatic bradycardia Narrative: Mr. Nnamdi Pollock is a 77 y.o. male whom I was asked to see at the request of Dr. Leyva for my advice and opinion regarding his bradycardia and second-degree AV block type 1, in consultation. He is followed by Dr. Perales for his CAD with right coronary artery stenting in 2011 and mild asymptomatic hypertrophic cardiomyopathy. Small stroke in March 2021. Mild aortic insufficiency. He was doing well when last seen in June 2022, with a heart rate of 62 ppm. He lives in assisted living, has memory loss. Mr. Pollock had episode of dizziness and lightheadedness 2 months ago, and a couple more episodes last week. He thought he might be dehydrated and has been drinking more fluids. Yesterday while walking up stairs he felt very dizzy and lightheaded and had to stop and put his head down. When he got back into his room he had a couple other episodes, felt hot and sweaty, presyncopal, and did not feel right. He called his son who brought him to the emergency room. Patient was found to have bradycardia and an abnormal heart rhythm in the emergency room, which is second-degree AV block type 1. Heart rate sometimes dropped into the upper 30s but generally was in the 50s. He takes metoprolol tartrate 50 mg once daily
[2022-12-26] MEDS: lisinopriL 5 MG TABLET PO (11:58)
--- NOTE | 2022-12-26 12:09 | PM.IMPN ---
Progress Note: A&P Assessment and Plan (1) AV block, Mobitz 1: Code(s): I44.1 - Atrioventricular block, second degree Status: Acute Assessment and Plan: Hold beta-yadi, appreciate cardiology consultation If telemetry looks good overnight, can likely be discharged tomorrow off beta-yadi (2) Symptomatic bradycardia: Code(s): R00.1 - Bradycardia, unspecified Status: Acute Assessment and Plan: See above (3) Near syncope: Code(s): R55 - Syncope and collapse Status: Acute Assessment and Plan: Secondary to above Check orthostatic vital signs (4) Essential (primary) hypertension: Code(s): I10 - Essential (primary) hypertension Status: Acute Assessment and Plan: Blood pressures reviewed 12/26 (5) Gastro-esophageal reflux disease without esophagitis: Code(s): K21.9 - Gastro-esophageal reflux disease without esophagitis Status: Acute Assessment and Plan: PPI Plan DVT prophylaxis with SCDs GI prophylaxis with PPI Code status full code Subjective Date/time seen: 12/26/22 12:09 Interval history: No overnight events noted. No chest pain or shortness of breath. No nausea, vomiting or diarrhea. No fevers or chills. Review of Systems Review of Systems: 12 point review of systems was assessed and was negative except as noted in the HPI Exam Narrative: General: No acute distress, alert and oriented per baseline HEENT: Atraumatic, normocephalic, mucous membranes moist CV: Regular rate and rhythm, S1, S2 Lungs: Clear to auscultation bilaterally, no rales or crackles noted, no wheezes, good air entry Abdomen: Soft, nontender, nondistended Extremities: Normal to inspection Skin: No rashes noted, no lesions or wounds seen Psych: Euthymic, normal affect Objective Data Vital Signs Vital Signs: Vital Signs - 24 hr 12/25/22 19:47 12/25/22 20:44 12/25/22 20:45 Temperature 97.4 F L Pulse Rate 63 47 L 41 L Respiratory Rate 18 15 15 Blood Pressure 156/61 H Pulse Oximetry 99 98 96 Oxygen Delivery Room Air 12/25/22 20:46 12/25/22 21:00 12/25/22 21:02 Temperature Pulse Rate 53 L 51 L 61 Respiratory Rate 19 16 18 Blood Pressure 119/63 106/63 Pulse Oximetry 98 97 94 Oxygen Delivery 12/25/22 21:03 12/25/22 21:15 12/25/22 21:21 Temperature Pulse Rate 43 L 47 L 55 L Respiratory Rate 22 H 15 18 Blood Pressure 142/61 H Pulse Oximetry 95 98 94 Oxygen Delivery 12/25/22 21:30 12/25/22 21:42 12/25/22 21:45 Temperature Pulse Rate 58 L 54 L 57 L Respiratory Rate 16 21 H 13 Blood Pressure 142/65 H Pulse Oximetry 94 97 97 Oxygen Delivery 12/25/22 21:53 12/25/22 22:00 12/25/22 22:02 Temperature Pulse Rate 51 L 52 L 55 L Respiratory Rate 16 13 16 Blood Pressure 154/71 H 149/84 H Pulse Oximetry 97 97 99 Oxygen Delivery 12/25/22 22:12 12/25/22 22:22 12/25/22 22:30 Temperature Pulse Rate 56 L 54 L 59 L Respiratory Rate 18 19 19 Blood Pressure 151/81 H 145/67 H Pulse Oximetry 98 97 99 Oxygen Delivery 12/25/22 22:32 12/25/22 22:42 12/25/22 22:52 Temperature Pulse Rate 50 L 47 L 55 L Respiratory Rate 18 16 12 Blood Pressure 150/103 H 143/74 H 147/68 H Pulse Oximetry 99 97 99 Oxygen Delivery 12/25/22 23:00 12/25/22 23:02 12/26/22 02:31 Temperature Pulse Rate 44 L 44 L 56 L Respiratory Rate 19 21 H 17 Blood Pressure 140/63 133/57 L Pulse Oximetry 96 96 99 Oxygen Delivery 12/25/22 23:03 12/25/22 23:11 12/25/22 23:22 Temperature Pulse Rate 56 L 48 L 66 Respiratory Rate 19 17 18 Blood Pressure 145/73 H 144/101 H Pulse Oximetry 98 96 95 Oxygen Delivery 12/25/22 23:30 12/25/22 23:32 12/25/22 23:42 Temperature Pulse Rate 48 L 55 L 57 L Respiratory Rate 19 17 21 H Blood Pressure 162/66 H 132/67 Pulse Oximetry 98 97 98 Oxygen Delivery 12/25/22 23:52 12/26/22 00:00 12/26
[2022-12-26] MEDS: TRIAMTERENE/HCTZ 18.75/12.5 MG TABLET 1 TAB PO (12:27)
[2022-12-26] MEDS: PANTOPRAZOLE 40 MG TABLET PO ×2 (13:06→16:23)
--- NOTE | 2022-12-26 16:27 | PC.NURSE ---
Reviewed fall precautions with patient. Patient verbalized understanding.
[2022-12-26] MEDS: ATORVASTATIN 40 MG TABLET PO (20:20)
[2022-12-27] VITALS (11 sets, daily range): BP systolic 141–166; BP diastolic 53–61; PULSE 48–66; RESP 18–32; TEMP 36.2–36.8; O2SAT 97–98
[2022-12-27] MEDS: SODIUM CHLORIDE 0.9% IV 1,000 ML 125 ML IV CONT (00:24)
[2022-12-27 05:17] LABS: Basophils Percent Auto 0.5 % (0.2-1.2); Eosinophils Absolute Auto 0.2 K/mm3 (0-0.3); Hematocrit 41.6 % (42.0-52.0); Hemoglobin 13.5 g/dL (14.0-18.0); Immature Granulocyte Absolute 0.08 K/mm3 (0.00-0.031); Immature Granulocyte Percent A 0.9 % (0-0.5); Lymphocytes Absolute Auto 1.16 K/mm3 (0.9-3.2); Lymphocytes Percent Auto 13.1 % (18.3-44.2); Mean Corpuscular HGB Conc 32.5 g/dl (32-36); Mean Corpuscular Hemoglobin 30.5 pg (26-34); Mean Corpuscular Volume 93.9 fl (80-100); Mean Platelet Volume 10.5 fl (7.4-10.4); Monocytes Absolute Auto 0.8 K/mm3 (0.1-0.6); Monocytes Percent Auto 9.4 % (2.6-8.5); Neutrophils Absolute Auto 6.6 K/mm3 (1.3-6.7); Neutrophils Percent Auto 74.1 % (45.5-73.1); Platelet Count Result 216 k/mm3 (150-375); Red Blood Count 4.43 M/mm3 (4.6-6.20); Red Cell Distribution Width 12.8 % (11.5-14.5); White Blood Count 8.9 K/mm3 (4.5-10.0)
[2022-12-27 05:32] LABS: Alanine Aminotransferase 39 U/L (6-50); Albumin Level 3.9 g/dL (3.5-5.1); Alkaline Phosphatase 91 U/L (38-126); Anion Gap 9 mmol/L (8-16); Aspartate Amino Transferase 36 U/L (17-59); Bilirubin,Total 0.9 mg/dL (0.2-1.3); Blood Urea Nitrogen 16 mg/dL (9-20); Calcium 8.8 mg/dL (8.4-10.2); Carbon Dioxide 24 mmol/L (22-30); Chloride 107 mmol/L (98-107); Estimated CRCL calculation 58 ml/min; Estimated Glomerular Filt Rate > 60; Glucose 103 mg/dL (65-110); Potassium 3.6 mmol/L (3.4-5.0); Sodium 140 mmol/L (137-145)
[2022-12-27] MEDS: lisinopriL 5 MG TABLET PO (08:21)
[2022-12-27] MEDS: TRIAMTERENE/HCTZ 18.75/12.5 MG TABLET 1 TAB PO (08:21)
[2022-12-27] MEDS: FINASTERIDE 5 MG TABLET PO (08:21)
[2022-12-27] MEDS: ASPIRIN 81 MG CHEWABLE TABLET PO (08:21)
[2022-12-27] MEDS: PANTOPRAZOLE 40 MG TABLET PO (08:21)
--- NOTE | 2022-12-27 09:05 | PM.IMPN ---
Progress Note: A&P Assessment and Plan (1) AV block, Mobitz 1: Code(s): I44.1 - Atrioventricular block, second degree Status: Acute Assessment and Plan: Hold beta-yadi, appreciate cardiology consultation (2) Symptomatic bradycardia: Code(s): R00.1 - Bradycardia, unspecified Status: Acute Assessment and Plan: See above (3) Near syncope: Code(s): R55 - Syncope and collapse Status: Acute Assessment and Plan: Secondary to above Check orthostatic vital signs (4) Essential (primary) hypertension: Code(s): I10 - Essential (primary) hypertension Status: Acute Assessment and Plan: Blood pressures reviewed 12/27 (5) Gastro-esophageal reflux disease without esophagitis: Code(s): K21.9 - Gastro-esophageal reflux disease without esophagitis Status: Acute Assessment and Plan: PPI Plan DVT prophylaxis with SCDs GI prophylaxis with PPI Code status full code Subjective Date/time seen: 12/27/22 09:05 Interval history: 77-year-old male with history of heart disease, dementia, CVA is presenting with dizziness/lightheadedness and intermittent syncopal episodes and currently being evaluated for bradycardia and second-degree AVB type 1. No overnight events noted. No chest pain or shortness of breath. No nausea, vomiting or diarrhea. No fevers or chills. Review of Systems Review of Systems: 12 point review of systems was assessed and was negative except as noted in the HPI Exam Narrative: General: No acute distress, alert and oriented per baseline HEENT: Atraumatic, normocephalic, mucous membranes moist CV: Regular rate and rhythm, S1, S2 Lungs: Clear to auscultation bilaterally, no rales or crackles noted, no wheezes, good air entry Abdomen: Soft, nontender, nondistended Extremities: Normal to inspection Skin: No rashes noted, no lesions or wounds seen Psych: Euthymic, normal affect Objective Data Vital Signs Vital Signs: Vital Signs - 24 hr 12/26/22 10:00 12/26/22 11:46 12/26/22 12:00 Temperature 99.0 F Pulse Rate 73 63 Respiratory Rate 12 Blood Pressure 139/54 L Pulse Oximetry 95 97 Oxygen Delivery Room Air 12/26/22 12:00 12/26/22 14:00 12/26/22 16:00 Temperature 98.8 F Pulse Rate 75 88 61 Respiratory Rate 16 Blood Pressure 115/64 Pulse Oximetry 96 Oxygen Delivery 12/26/22 16:00 12/26/22 16:00 12/26/22 16:55 Temperature 99.2 F Pulse Rate 60 56 L Respiratory Rate 18 Blood Pressure 134/41 L Pulse Oximetry 98 97 Oxygen Delivery Room Air 12/26/22 16:56 12/26/22 16:56 12/26/22 18:00 Temperature Pulse Rate 80 63 66 Respiratory Rate Blood Pressure 145/65 H 133/62 Pulse Oximetry Oxygen Delivery 12/26/22 19:22 12/26/22 21:02 12/26/22 21:02 Temperature 97.4 F L 98.2 F 97.7 F Pulse Rate 66 73 73 Respiratory Rate 20 18 18 Blood Pressure 127/49 L 108/51 L 110/53 L Pulse Oximetry 97 97 96 Oxygen Delivery 12/26/22 21:02 12/26/22 20:00 12/26/22 20:00 Temperature 98.2 F Pulse Rate 45 L 50 L 50 L Respiratory Rate 18 18 Blood Pressure 115/48 L Pulse Oximetry 97 97 Oxygen Delivery Room Air 12/26/22 21:28 12/26/22 22:54 12/26/22 23:46 Temperature 97.6 F Pulse Rate 54 L 63 48 L Respiratory Rate 20 Blood Pressure 126/47 L Pulse Oximetry 98 Oxygen Delivery 12/26/22 23:46 12/27/22 02:00 12/27/22 04:00 Temperature Pulse Rate 48 L 54 L 48 L Respiratory Rate 20 Blood Pressure Pulse Oximetry 98 Oxygen Delivery Room Air 12/27/22 04:00 12/27/22 04:37 12/27/22 05:29 Temperature 97.3 F L Pulse Rate 48 L 65 51 L Respiratory Rate 20 18 Blood Pressure 154/58 H Pulse Oximetry 98 98 Oxygen Delivery Room Air 12/27/22 07:39 12/27/22 07:43 12/27/22 07:44 Temperature 97.2 F L 97.7 F 97.5 F L Pulse Rate 56 L 66 60 Respiratory Rate 32 H 28 H 24 H Blood Pr
--- NOTE | 2022-12-27 09:09 | PM.PNCARD ---
Progress Note: A&P Assessment and Plan (1) AV block, Mobitz 1: Code(s): I44.1 - Atrioventricular block, second degree Status: Acute Assessment and Plan: Patient presents with dizziness, lightheadedness and near-syncope was found to have episodic second-degree AV block type 1. --Metoprolol has been discontinued --Telemetry continues to show sinus rhythm with 1st degree AVB with intermittent 2nd degree AVB type II. --outpatient monitoring after discharge --OK for discharge today. 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 transplanted heart: nikolski heart Qualified Code(s): I25.10 - Atherosclerotic heart disease of n[place]ki coronary artery without angina pectoris Code(s): I25.10 - Atherosclerotic heart disease of n[place]ki coronary artery without angina pectoris Status: Acute Assessment and Plan: History of CAD, stable with no angina. (4) Hypertrophic cardiomyopathy: Code(s): I42.2 - Other hypertrophic cardiomyopathy Status: Acute Assessment and Plan: Hypertrophic cardiomyopathy, prominent murmur, including a murmur of mitral regurgitation. No MR noted by echo in 03/2021. Asymptomatic with no GRACE. --Echo shows normal LV systolic function, grade II diastolic dysfunction. Mild AI, MR, and TR (5) Hypertension: Qualifiers: Hypertension type: unspecified Qualified Code(s): I10 - Essential (primary) hypertension Code(s): I10 - Essential (primary) hypertension Status: Acute Assessment and Plan: BP somewhat elevated, and since we are discontinuing metoprolol we will change to another antihypertensive. --start lisinopril 5 mg daily Subjective Date/time seen: 12/27/22 09:09 Interval history: Cardiology follow up for near syncope, 2nd degree AVB type I Review of Systems Constitutional: Constitutional: Denies fever(s) Eyes: Eyes: Reports no additional eye complaints ENT: Denies epistaxis Cardiovascular: Cardiovascular: Denies chest pain, Denies pedal edema, Denies lightheadedness and Denies dyspnea Respiratory: Respiratory: Denies chest congestion and Denies dyspnea Gastrointestinal: Gastrointestinal: Denies abdominal pain and Denies hematochezia Genitourinary: Genitourinary: Denies hematuria Musculoskeletal: Musculoskeletal: Reports no additional musculoskeletal complaints Integumentary/Breasts: Skin/Breast: Reports system reviewed and no additional complaints, except as docu Neurologic: Reports system reviewed and no additional complaints, except as documented and Denies behavioral changes Psychiatric: Psychiatric: Denies behavioral changes Exam Const: General: comfortable, no acute distress, alert and awake Orientation/consciousness: patient oriented x3 HENMT: Head: normal to inspection Eyes: General: appearance normal, both eyes and all related structures Pupils: Equal, round and reactive pupils present Neck: Neck: normal visual inspection, supple and no JVD Carotids: normal carotid upstroke Resp: Effort & Inspection: normal respiratory effort Auscultation: clear to auscultation bilaterally Cardio: Rate: regular rate and bradycardic Rhythm: regular rhythm Heart sounds: S1 normal heart sound present, S2 normal heart sound present and Murmur heart sound present systolic GI: Auscultation: normal bowel sounds Skin: General skin exam: normal color Neuro: General: patient oriented x3 Cranial nerves: Yes Equal, round and reactive pupils present Extrem: General: normal to inspection Psych: Appearance: grossly normal Mental Status: mental status grossly normal Objective Data Vital Signs Vital Signs: Vital Signs -
--- NOTE | 2022-12-27 11:04 | ECHO_ITS ---
Patient Info Name: Nnamdi Pollock Age: 77 years : 1945 Gender: Male Ht: 65 in Wt: 166 lbs BSA: 1.88 m2 HR: 57 bpm BP: 154 / 58 mmHg Heart Rhythm: Bradycardia Technical Quality: Fair Exam Date: 12/27/2022 10:27 AM Exam Location: Echo Lab Patient Status: Outpatient Admit Date: 12/25/2022 Staff Ordering Physician: Sarahy Mcgowan MD Red Leader: Eden Johnson RDCS Attending Provider: Tremayne Delarosa MD Referring Physician: Roslyn RAPP; Exam Type: CA echo doppler color flow Study Info Indications - bradycardia, cad, hocm Complete two-dimensional, color flow and Doppler transthoracic echocardiogram is performed. Summary 1. Complete two-dimensional, color flow and Doppler transthoracic echocardiogram is performed. 2. Left ventricular chamber dimension is normal. 3. Left ventricular systolic function is normal, estimated at 65-70%. 4. There is severe asymmetric septal increased left ventricular wall thickness. 5. The left ventricular diastolic function is grade II diastolic dysfunction. 6. Left atrial chamber dimension is moderately enlarged. 7. There is mild aortic valve regurgitation. 8. Chordal NORMA noted. 9. There is mild mitral valve regurgitation. 10. There is mild tricuspid valve regurgitation. Left Ventricle Left ventricular chamber dimension is normal. Left ventricular systolic function is normal, estimated at 65-70%. There is severe asymmetric septal increased left ventricular wall thickness. The left ventricular diastolic function is grade II diastolic dysfunction. Right Ventricle Right ventricular chamber dimension is normal. Right ventricular systolic function is normal. Left Atria Left atrial chamber dimension is moderately enlarged. Right Atria Right atrial chamber dimension is normal. Atrial Septum Intact interatrial septum visualized by color flow imaging. Aortic Valve The aortic valve is trileaflet. There is mild aortic valve sclerosis. There is no aortic valve stenosis. There is mild aortic valve regurgitation. Pulmonic Valve The pulmonic valve is normal. There is no pulmonic valve stenosis. There is trace pulmonic regurgitation. Mitral Valve Chordal NORMA noted. There is no mitral valve stenosis. There is mild mitral valve regurgitation. Tricuspid Valve The tricuspid valve leaflets are normal. There is no significant tricuspid valve stenosis. There is mild tricuspid valve regurgitation. No pulmonary hypertension, estimated pulmonary arterial systolic pressure is 35 mmHg. Pericardium/Pleural The pericardium appears normal. There is no pericardial effusion. Inferior Vena Cava Normal inferior vena cava with >50% collapse upon inspiration consistent with normal right atrial pressure, 10 mmHg. Aorta The aortic root size at the sinus of Valsalva is normal. Left Ventricular Outflow Tract Name Value Normal LVOT 2D LVOT Diameter 2.0 cm LVOT Doppler LVOT Peak Gradient 12 mmHg LVOT Mean Gradient 7 mmHg LVOT VTI 42 cm LVOT VTI/AV VTI Ratio 1.0 LVOT Stroke Volume 129 ml
--- NOTE | 2022-12-27 11:45 | PM.DS ---
DS: Admitting Diagnosis Discharge Date 12/27/22 Admitting Diagnosis syncope DS: Discharge Diagnosis Discharge Diagnosis (1) AV block, Mobitz 1: Code(s): I44.1 - Atrioventricular block, second degree Status: Acute Assessment and Plan: Hold beta-yadi, appreciate cardiology consultation (2) Symptomatic bradycardia: Code(s): R00.1 - Bradycardia, unspecified Status: Acute Assessment and Plan: See above (3) Near syncope: Code(s): R55 - Syncope and collapse Status: Acute Assessment and Plan: Secondary to above Check orthostatic vital signs (4) Essential (primary) hypertension: Code(s): I10 - Essential (primary) hypertension Status: Acute Assessment and Plan: Blood pressures reviewed 12/27 (5) Gastro-esophageal reflux disease without esophagitis: Code(s): K21.9 - Gastro-esophageal reflux disease without esophagitis Status: Acute Assessment and Plan: PPI Plan DVT prophylaxis with SCDs GI prophylaxis with PPI Code status full code DS: Summary Hospital Course Hospital Course: 77-year-old male with history of heart disease, dementia, CVA is presenting with dizziness/lightheadedness and intermittent syncopal episodes and currently being evaluated for bradycardia and second-degree AVB type 1. Patient presents with dizziness, lightheadedness and near-syncope was found to have episodic second-degree AV block type 1.? Telemetry overnight showed a few beats of type 2 AV block while asleep but this morning he is back in sinus rhythm with a first-degree AV block.? This is due to his aging cardiac electrical system, aggravated by metoprolol.? Likely this will progress with time and can be episodic.? Is quite possible he will need a pacemaker at some time, but we may be able to avoid one for now if we discontinue the metoprolol.? At at least of this morning, a temporary or permanent pacemaker is not necessary.? Discontinue metoprolol and follow closely.?Telemetry stable o/n. Discharge tomorrow if no high-degree AV block or symptomatic second-degree AV block is seen. Outpatient monitoring after discharge. Patient was discharged in stable condition with close outpatient follow-up. Please see above and med rec for details. Time Spent with Patient Time attestation: Total time spent providing and/or coordinating discharge services: Exam Narrative: General: No acute distress, alert and oriented per baseline HEENT: Atraumatic, normocephalic, mucous membranes moist CV: Regular rate and rhythm, S1, S2 Lungs: Clear to auscultation bilaterally, no rales or crackles noted, no wheezes, good air entry Abdomen: Soft, nontender, nondistended Extremities: Normal to inspection Skin: No rashes noted, no lesions or wounds seen Psych: Euthymic, normal affect DS: Data Data Completed and Pending Labs on day of discharge: Labs from last 24 hours 12/27/22 04:40 WBC 8.9 RBC 4.43 L Hgb 13.5 L Hct 41.6 L MCV 93.9 MCH 30.5 MCHC 32.5 RDW 12.8 Plt Count 216 MPV 10.5 H Immature Gran % (Auto) 0.9 H Neut % (Auto) 74.1 H Lymph % (Auto) 13.1 L [place] % (Auto) 9.4 H Eos % (Auto) 2.0 Baso % (Auto) 0.5 Lymph # (Auto) 1.16 [place] # (Auto) 0.8 H Eos # (Auto) 0.2 Baso # (Auto) 0.0 Abs Immat Gran (auto) 0.08 H Absolute Neuts (auto) 6.6 Absolute Nucleated RBC 0.0 Nucleated RBC % 0.0 Sodium 140 Potassium 3.6 Chloride 107 Carbon Dioxide 24 Anion Gap 9 BUN 16 Creatinine 0.80 Estim Creat Clear Calc 58 Estimated GFR > 60 Glucose 103 Calcium 8.8 Total Bilirubin 0.9 AST 36 ALT 39 Alkaline Phosphatase 91 Total Protein 6.0 L Albumin 3.9 Discharge Plan Discharge Attending physician on discharge: Mer Bridges Consulting providers: Sarahy Mcgowan Discharging Clinician: Mer Bridges Patient Disposition: [facility] Half-Way/Asst Living Activity: as tolerated D
== END 2022-12-27 12:46 ==
LOC: ANHED 22:00 → ANHIMU 23:16
PROVIDERS: Admitting Provider Internal Medicine; Emergency Provider Student in an Organized Health Care Education/Training Program; PCP Family Medicine; Visit Provider Student in an Organized Health Care Education/Training Program
DX: I44.1 Atrioventricular block, second degree (principal); R00.1 Bradycardia, unspecified; R55 Syncope and collapse; I11.9 Hypertensive heart disease without heart failure; K21.9 Gastro-esophageal reflux disease without esophagitis; I25.10 Atherosclerotic heart disease of native coronary artery without angina pectoris; Z95.5 Presence of coronary angioplasty implant and graft; I42.2 Other hypertrophic cardiomyopathy; I08.3 Combined rheumatic disorders of mitral, aortic and tricuspid valves; Z79.82 Long term (current) use of aspirin; Z79.02 Long term (current) use of antithrombotics/antiplatelets; Z79.899 Other long term (current) drug therapy
CPT/HCPCS: 36415; 71045; 80053; 83735; 84443; 84484; 85025; 93005; 93306; 96360; 99285; A9270; G0378; J7030

== ENCOUNTER 2023-03-21 13:53 | Outpatient (CLI) | payer MEDICARE, SELFPAY ==
[2023-03-21 15:04] LABS: Alanine Aminotransferase 33 U/L (6-50); Aspartate Amino Transferase 51 U/L (17-59)
== END 2023-03-21 13:54 | disposition home or self-care (01) ==
LOC: ANHLAB 13:56
PROVIDERS: PCP Family Medicine; Visit Provider Podiatrist Foot & Ankle Surgery
DX: B35.1 Tinea unguium (principal)
CPT/HCPCS: 36415; 84450; 84460

== ENCOUNTER 2023-06-13 13:15 | Outpatient (RCR) | payer MEDICARE, SELFPAY ==
--- NOTE | 2023-05-20 09:04 | OPREHPOC ---
Outpatient Therapy Plan of Care This is a Multidisciplinary Plan of Care that may contain components documented by all disciplines (PT, OT, and ST.) PT Problem 1 PT Problem #1 Knowledge Deficit PT Goal 1 Goal *indep with HEP PT Problem 2 PT Problem #2 Pain PT Goal 1 Goal 1* pt report pain of 5/10 at worst 2* pt report standing/walking tolerance of 20 minutes 3* self assessment Oswestry score of 30% limitation PT Problem 3 PT Problem #3 Impaired Flexibility PT Goal 1 Goal increase flexibility of trunk and hips, to improve posture and mobility hamstring length with supine SLR 1* R 40' 2* L 40' anterior hip-quad length with prone knee flexion 3* R 110' 4* L 110' PT Problem 4 PT Problem #4 Impaired Strength PT Goal 1 Goal increase strength of trunk and hips, to improve mobility skills and stability to spine 1* 2 minute walking test distance of 525' 2* 20 reps of mat strengthening exercises
--- NOTE | 2023-05-20 09:04 | PTOPEVAL1 ---
Assessment and note entered by Christine Richards, PT Evaluation Information Assessment Status Evaluation Diagnosis lumbar pain Onset Feb 2023 Subjective Information gradual increase in back pain; history of chronic back pain; have had PT in the past few years ago- did exercises and traction helped; Activity: live in assisted living apt-- staff provide cooking, laundry and cleaning services; drives and indep with self care; use cane sometimes for distances Reported Pain Level Pain Score Self Report Additional Pain Score Comments pain range in the past week: 0-8/10, L > R lumbar, radicular into L LE with numbness intermittent to foot increase pain: sitting; standing/walking/activity tolerance reported 10-15 minutes decrease pain: take tylenol is sleeping OK; able to walk in store with cart about 45 min Assessment PT Clinical Summary Sharan has the diagnosis of back pain, with intermittent into L LE to foot. He reports history of chronic issues with back pain, BLACKFEET/ auditory comprehension and slight dementia and pacemaker. Self assessment Oswestry score of 40% limitation in activity level. He lives in an assisted living apt and uses cane for distances. With the evaluation: he has weakness over trunk and hips, with poor standing position, tightness over hips and trunk; 2 minute walking test distance of 450' without pain increase. Skilled PT services are indicated for treatment of lumbar pain and stenosis: modalities to decrease pain; therapeutic exercises and education for HEP and posture correction. Plan of Care Interventions Hot Pack/Cold Pack,Manual Therapy,Mechanical Traction,Neuro Re-education,Patient Education,Therapeutic Activities,Therapeutic Exercise,Other Other Interventions taping PT Services Indicated Yes Treatment Frequency and 2x/wk for total of 8 visits Duration These treatments will address the objective and functional deficits as defined above. T
--- NOTE | 2023-05-24 14:38 | PCPTNOTE ---
Pt canceled due to illness and rescheduled for tomorrow.
--- NOTE | 2023-05-31 14:12 | PCPTNOTE ---
pt did not show for today's appt;
--- NOTE | 2023-06-01 14:32 | PCPTNOTE ---
pt called and canceled today's appt due to being ill.
--- NOTE | 2023-06-13 14:14 | PTOPDC ---
Assessment and note entered by Christine Richards, PT Discharge Information Assessment Status Discharge Diagnosis lumbar pain Onset Feb 2023 Subjective Information have been doing the exercises at home; back is about 30% better since starting therapy; pain just comes on when it wants to--not whenever I do a certain thing, but standing and leaning over the sink brushing teeth hurts immediately; walk 3-4x/ wk for exercise, pushing cart in [employer] for 40 minutes; Reported Pain Level Pain Score Self Report Additional Pain Score Comments pain range in the past week: 0- 8/10; L lumbar- sacral and numb into posterior LE to distal to knee; reported tolerance with standing/walking- varies from few minutes to one hour; walking is better with pushing the grocery cart; take tylenol for pain; Assessment PT Clinical Summary Sharan has received 7 PT sessions. He called/ canceled 2 and did not show for 1 appointment. Compared to the initial evaluation: pain rating is the same at 0-8/10; self assessment Oswestry rating from 40 to 46% limitation in activity level reported walking/standing tolerance from 10-15 minutes to few minutes to 1 hour--varies; increase flexibility of R and L hamstring; anterior hip-quad length is about the same; 2 minute walking test distance is the same; increase strength of trunk and hips. Education completed for HEP and posture correction. The goals were partially met. Discharge PT services. He is to continue with the HEP. Plan of Care PT Services Indicated No
== END 2023-06-13 15:06 | disposition home or self-care (01) ==
LOC: ANHPT 13:15
PROVIDERS: PCP Family Medicine; Visit Provider Family Medicine
DX: M47.816 Spondylosis without myelopathy or radiculopathy, lumbar region (principal)
CPT/HCPCS: 97110; 97161; 97530; 99199

== ENCOUNTER 2023-07-27 15:49 | Outpatient (CLI) | payer MEDICARE, SELFPAY ==
[2023-07-27 16:30] LABS: Alanine Aminotransferase 38 U/L (6-50); Aspartate Amino Transferase 28 U/L (17-59)
== END 2023-07-27 15:50 | disposition home or self-care (01) ==
LOC: ANHLAB 15:52
PROVIDERS: PCP Family Medicine; Visit Provider Podiatrist Foot & Ankle Surgery
DX: B35.1 Tinea unguium (principal)
CPT/HCPCS: 36415; 84450; 84460

== ENCOUNTER 2023-11-01 15:05 | Outpatient (CLI) | payer MEDICARE, SELFPAY ==
[2023-11-01 15:49] LABS: Alanine Aminotransferase 29 U/L (6-50); Aspartate Amino Transferase 27 U/L (17-59)
== END 2023-11-01 15:06 | disposition home or self-care (01) ==
PROVIDERS: PCP Family Medicine; Visit Provider Podiatrist Foot & Ankle Surgery
DX: B35.1 Tinea unguium (principal)
CPT/HCPCS: 36415; 84450; 84460

== ENCOUNTER 2023-11-18 15:29 | Outpatient (CLI) | payer MEDICARE, SELFPAY ==
--- NOTE | ~2023-11-18 | XR_ITS ---
XR shoulder LT min 2V Ordering provider: Jak Looney DO History: . Pain in left shoulder FOR 1 MONTH NO INJURY . Comparison: None. FINDINGS: Left bipolar pacemaker. BONES: No acute fracture or dislocation. JOINT SPACES: The acromioclavicular joint is normal. The glenohumeral joint is normal. SOFT TISSUES: Normal. IMPRESSION: No acute osseous abnormality left shoulder. Reviewed, dictated and finalized at location A.
== END 2023-11-18 15:30 | disposition home or self-care (01) ==
PROVIDERS: PCP Family Medicine; Visit Provider Family Medicine
DX: M25.512 Pain in left shoulder (principal)
CPT/HCPCS: 73030

== ENCOUNTER 2024-01-30 16:05 | Outpatient (CLI) | payer MEDICARE, SELFPAY ==
[2024-01-30 17:30] LABS: Alanine Aminotransferase 30 U/L (6-50); Aspartate Amino Transferase 43 U/L (17-59)
== END 2024-01-30 16:06 | disposition home or self-care (01) ==
LOC: ANHLAB 16:08
PROVIDERS: PCP Emergency Medicine; Visit Provider Podiatrist Foot & Ankle Surgery
DX: B35.1 Tinea unguium (principal)
CPT/HCPCS: 36415; 84450; 84460

== ENCOUNTER 2024-01-31 14:30 | Outpatient (RCR) | payer MEDICARE, SELFPAY ==
--- NOTE | 2023-12-23 16:19 | OPREHPOC ---
Outpatient Therapy Plan of Care This is a Multidisciplinary Plan of Care that may contain components documented by all disciplines (PT, OT, and ST.) PT Problem 1 PT Problem #1 Knowledge Deficit PT Goal 1 Goal / Goal Update *indep with HEP Target Visit 8 PT Problem 2 PT Problem #2 Pain PT Goal 1 Goal / Goal Update 1* pt report pain rating at worst of 4/10 2* Oswestry self rating of 32% limitation in activity level 3* radicular pain to L knee at worst Target Visit 8 PT Problem 3 PT Problem #3 Impaired Flexibility PT Goal 1 Goal / Goal Update increase hip flexibility to decrease supervisor pullet farm sacrum and spine hamstring length with supine SLR 1* R 60' 2* L 55' anterior hip/quad length with prone knee flexion 3* R 105' 4* L 105' piriformis length with supine leg cross stretch, to midline 5* R 6* L Target Visit 8 PT Problem 4 PT Problem #4 Impaired Strength PT Goal 1 Goal / Goal Update increase trunk and hip strength for support to spine and improve positioning 1* pt perform 20 reps of mat and standing exercises with good control Target Visit 10
--- NOTE | 2023-12-23 16:19 | PTOPEVAL1 ---
Assessment and note entered by Christine Richards PT Evaluation Information Assessment Status Evaluation ICD-10 Condition Codes (PT) Pain in low back M54.50 Other ICD-10 Condition Codes ( lumbar spondylosis M47.816 PT) Onset September 2023 Subjective Information chronic back pain, without any recent injury or trauma to back; have had PT in the past--cannot recall what helped him; walking increases his pain; dr sent him here and if does not help, may go to pain ; resident of assisted living apartment; Reported Pain Level Pain Score Self Report Additional Pain Score Comments pain range in the past week 0-/10: L low back, sometimes numb to foot increase pain: flexion of trunk with sitting; walking tolerance reported 10 minutes; end of day; lie on L side decrease pain: tylenol 3x/day; sit, rest, with sitting- lean back sleep OK; Assessment PT Clinical Summary Sharan has the diagnosis of lumbar stenosis, with radicular pain into L LE to foot- intermittent. He reports walking is decreased due to pain and he tends to lean over and problems standing up straight. Self assessment Oswestry rating of 42% limitation in activity level. With the evaluation: testing did not provoke an increase in pain; he has tightness over R and L hamstring, piriformis and anterior hip/quad muscle groups; and weakness over trunk and hips; flat lumbar spine with decreased mobility. Skilled PT services are indicated for modalities PRN, therapeutic exercises to increase flexibility and strength over trunk and hips with education for HEP and positioning. Plan of Care Interventions Hot Pack/Cold Pack,Manual Therapy,Mechanical Traction,Neuro Re-education,Patient Education,Therapeutic Activities,Therapeutic Exercise,Other Other Interventions taping PT Services Indicated Yes Treatment Frequency and 1-2x/wk for 8 visits Duration These treatments will address the objective and functional deficits as defined above. The patient will be advanced safely and appropriately in order for the patient to progress towards his/her prior level of function. Additional exercises will be introduced and as well as a comprehensive home exercise program upon discharge, if needed, ?to ensure carryover of functional gains achieved in the clinic. This treatment plan has been reviewed and agreement upon by the patient.
--- NOTE | 2024-01-03 10:55 | PCPTNOTE ---
Called and canceled due to stomach flu. AKS
--- NOTE | 2024-01-31 15:06 | PTOPDC ---
Assessment and note entered by Christine Richards, PT Assessment Status Discharge ICD-10 Condition Codes (PT) Pain in low back M54.50 Other ICD-10 Condition Codes ( lumbar spondylosis M47.816 PT) Onset September 2023 Subjective Information back is better; Reported Pain Level Pain Score Self Report Additional Pain Score Comments pain rating in the past week: 0-5/10; sometimes numb to L ankle, 2x/day lasting 2-3 minutes increase pain: lean forward, more activity decrease pain: stand up straight, sit up tall with support to back able to be up/walking about 1 hour Assessment PT Clinical Summary Sharan has received 8 PT sessions. Compared to the initial evaluation: pain from 0-7/ 10 to 0-5/10; intermittent radicular pain into L LE from foot to now ankle; self assessment Oswestry from 42% to 32% limitation in activity level; reported walking tolerance 10 min to 60 minutes; increased flexibility of R and L hamstring, anterior hip/quads and piriformis muscles; increase strength of trunk and hips; education completed for HEP and body mechanics, pain control techniques. The goals were partially met. Discharge PT, and he is to continue with his HEP. Plan of Care PT Services Indicated No
== END 2024-02-02 17:07 | disposition home or self-care (01) ==
LOC: ANHPT 14:30
PROVIDERS: PCP Family Medicine; Visit Provider Family Medicine
DX: M47.816 Spondylosis without myelopathy or radiculopathy, lumbar region (principal)
CPT/HCPCS: 97110; 97161; 97530

== ENCOUNTER 2024-06-06 11:18 | Outpatient (CLI) | payer MEDICARE, SELFPAY ==
--- NOTE | ~2024-06-06 | XR_ITS ---
Right elbow Technique: AP, oblique, and lateral views were obtained. Clinical History: Pain Findings: No acute fracture or dislocation is seen. Osseous alignment is anatomic. Joint spaces are p reserved. There is no displacement of the fat pads, and no evidence of joint effusion. There is a 4 m m metallic foreign body in the anterior subcutaneous soft tissues at the antecubital fossa region. Pr obable enthesopathic change at the triceps tendon insertion with mild soft tissue swelling in this re gion. Impression: 4 mm foreign body anteriorly the antecubital fossa region. Probable enthesopathic change at the triceps tendon insertion with soft tissue swelling in this regio n. Correlate for olecranon bursitis. Reviewed, dictated and finalized at location M. Impression: 4 mm foreign body anteriorly the antecubital fossa region. Probable enthesopathic change at the triceps tendon insertion with soft tissue swelling in this region. Correlate for olecranon bursitis.
--- OUTSIDE RECORDS SUMMARY | 2024-06-06 12:49 | XMS_ITS | Clinical Summary ---
Author Organization [facility] [place] [address] Address [address] [place] [address] Care Team Providers Care Hub Associate Name Role Phone Jak Looney Primary Care Provider [phone] Allergies Active Allergy Reactions Criticality Noted Date Comments Ciprofloxacin Redness Low Medications triamterene-hy droCHLOROthiaz syed (MAXZIDE,DYAZI DE) 37.5-25 mg per tablet take 1 tablet by oral route every day 0 0 3 Active nitroglycerin (NITROSTAT) 0.4 mg SL tablet as needed 9 Active omeprazole (PriLOSEC) 40 mg capsule 1 Active atorvastatin (LIPITOR) 40 mg tablet Take 1 tablet (40 mg total) by mouth nightly 2 Active fluticasone propionate (FLONASE) 50 mcg/actuation nasal spray USE 1 SPRAY(S) IN EACH NOSTRIL EVERY 12 HOURS 2 Active lisinopriL (PRINIVIL,ZEST RIL) 5 mg tablet Take 1 tablet (5 mg total) by mouth daily 3 Active aspirin 81 mg enteric coated tabletIndicati ons:Coronary artery disease involving [place] coronary artery of [place] heart without angina pectoris Take 1 tablet (81 mg total) by mouth daily 30 tablet 11 3 Active finasteride (PROSCAR) 5 mg tablet Take 1 tablet (5 mg total) by mouth daily 5 Active metoprolol XL (TOPROL-XL) 50 mg extended release tablet Take 1 tablet by mouth once daily 90 tablet 5 Active metoprolol XL (TOPROL-XL) 50 mg extended release tablet Take 1 tablet by mouth once daily 90 tablet 5 05/17/19 25 Discontinued Active Problems Problem Noted Date Diagnosed Date Hypertrophic cardiomyopathy 02/16/2023 Automatic implantable cardiac defibrillator in s itu 02/08/2023 Overview (02/08/2023): Mas Dual ICD. Dx; HOCM, Syncope, NSVT. DOI 02/16/2023-Kahanda. [place] remote monitoring. Nonsustained ventricular tachycardia 02/03/2023 Syncope and collapse 02/03/2023 Cardiomyopathy, hypertrophic 01/06/2023 Coronary artery disease invo lving [place] coronary artery of [place] heart without angina pectoris 11/25/2016 History of coronary artery stent placement 11/25 Encounters Date Type Department Care Team Description 04/30/2024 11:00 AM CDT Office Visit [facility] Cardiology [address] [place] [phone] Rosa Tesfaye NP Cardiomyopathy, hypertrophic (HCC) (Primary Dx); AV block, 2nd degree; Automatic implantable cardiac defibrillator in situ; Coronary artery disease involving [place] coronary artery of [place] heart without angina pectoris 04/25/2024 3:00 PM CDT Ancillary Procedure [facility] Cardiology [address] [place] [address] Cardiomyopathy, hypertrophic (HCC); Nonsustained ventricular tachycardia (HCC); Syncope and collapse; Automatic implantable cardiac defibrillator in situ from Last 3 Months Medical History Medical History Date Comments Hypertension Hypertension Social History Tobacco Use Types Packs/Day Years Used Date Smoking Tobacco: Never Smokeless Tobacco: Never Tobacco Cessation:Counseling Given: Not Answered Alcohol Use Standard Drinks/Week Comments No 0 (1 standard drink = 0.6 oz pur e alcohol) AUDIT-C Answer Date Recorded Frequency of Alcohol Consumption Not on file 02/16/2023 Q2: How many drinks containi ng alcohol do you have on a typical day when you are drinking? Patient does not drink Frequency of Binge Drinking Not on file 02/07 Personal Safety Answer Date Recorded Have you ever been in or are you currently in a harmful physical or emotional relationship or is someone making you feel afraid or unsafe? 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 Gender Identity Not on file Sexual Orientation Not on file Obstetrics History Last Filed Vital Signs Vital Sign Reading Time Taken Comments Blood Pressure 114/62 04/30/2024 11:14 AM CDT Pulse 85 04/30/2024 11:14 AM CDT Temperature 36.8 C (98.2 F) 02/17/2023 8:22 AM TELEVISION ANCHOR Respiratory Rate 16 09/15/2023 11:15 AM CDT Oxygen Saturation 98% 04/30/2024 11:14 AM CDT Inhaled Oxygen Concentration - - Weight 69.9 kg (154 lb) 04/30/2024 11:14 AM CDT Height 167.6 cm (5' 6 ) 04/30/2024 11:14 AM CDT Body Mass Index 24.86 04/30/2024 11:14 AM CDT Plan of Treatment Health Maintenance Due Date Last Done Comments Depression Screening 1944 DTaP/Tdap/Td Vaccine (1 - Tdap) 05/16/1955 Hepatitis B Screening 1962 Pneumococcal vaccine 65+ (1 of 1 - PCV) 1994 Zoster Vaccine (1 of 2) 1994 Well Visit 65+ 2009 Fall Risk Assessment 02/18/2024 02/17/2023 Influenza Vaccine (Season Ended) 2024 Medical Devices Implanted Type Area Molded Goods Operator Device Identifier Shelf Expiration Date Model / Serial / Lot Mas Vascular Defib Cardiac [id number] [facility] Implantable 2 Chamber [id number] - [id number] - [id number] Implanted:Qty: 1 on 02/16/2023 by Anthony Prajapati MD at [facility] ICD Left: Infraclavicular Anterior Chest Wall Mas Vascular 01/06/2025 [id number] / [id number] / [employer] Durata 6.8fr 65cm True Bipolar Active Fixation Extendable 1 Coil 7122q/65 - [id number] - [id number] Implanted:Qty: 1 on 02/16/2023 by Anthony Prajapati MD at [facility] Lead N/A: Ventricle [employer] 12/07/2025 7122Q/65 / [id number] / [employer] Tendril Sts 6fr 52cm Is-1 Connector Active Fixation Bipolar Soft 2087tc/52 - [id number] Implanted:Qty: 1 on 02/16/2023 by Anthony Prajapati MD at [facility] Lead Right: Atrial Appendage [employer] 12/07/20252087TC/5 2 / / Procedures Procedure Name Priority Date/Time Associated Diagnosis Comments DEVICE CHECK - IN OFFICE Routine 04/25/2024 2:19 PM CDT Cardiomyopathy, hypertrophic (HCC) Nonsustained ventricular tachycardia (HCC) Syncope and collapse Automatic implantable cardiac defibrillator in situ from Last 3 Months Results * DEVICE CHECK - IN OFFICE (04/25/2024 2:19 PM CDT) Anatomical Region Laterality Modality Other Narrative 04/27/2024 8:40 AM CDT Mas Dual ICD. Dx; HOCM, Syncope, NSVT. DOI 02/16/2023-Alo. Jordon remote monitoring. Supervising MD: Dr Corcoran. Left pectoral incision well healed without signs of infection noted. Interrogation of DDD ICD demonstrated appropriate device function. Battery function-Ok, 7.7 years remaining battery longevity to ZAKIA. Charge time-9.0 seconds. Appropriate lead measurements noted. Presenting rhythm: -VS (SR). No Atrial high rate episodes noted. No Ventricular tachy arrhythmias recorded. Medications; ASA, Toprol XL, Lipitor. No programming changes made to device settings. Office device f/u 05/29/2025. [place] remote f/u 07/31/2024. Doris Montano, MECHE Anthony Prajapati MD [facility] [place] [facility] Final Result from Last 3 Months Insurance AET MEDICARE T MEDICARE AET MEDICARE Advance Directives For more information, please contact: [phone] * Full Code (Latest Code Status on File) Date Activated Date Inactivated Comments 02/16/2023 10:22 AM 02/17/2023 4:42 PM Care Teams Hub Associate Relationship Specialty Start Date End Date Jak Looney DO PCP - General Family Medicine 12/29/21
--- OUTSIDE RECORDS SUMMARY | 2024-06-06 12:49 | XMS_ITS | Referral Summary ---
Author Organization [place] [address] [address] [place] [address] Care Team Providers Care Supervisor Doping Name Role Phone MorganJak ann Primary Care Provider [phone] Encounters Date Type Department Care Team Description 04/30/2024 11:00 AM CDT Office Visit [facility] Medical [facility] Cardiology [address] [place] [address] [address] [place] [address] Rosa Tesfaye NP Cardiomyopathy, hypertrophic (HCC) (Primary Dx); AV block, 2nd degree; Automatic implantable cardiac defibrillator in situ; Coronary artery disease involving [place] coronary artery of [place] heart without angina pectoris 04/25/2024 3:00 PM CDT Ancillary Procedure [facility] Cardiology [address] [place] [address] [address] [place] [address] Cardiomyopathy, hypertrophic (HCC); Nonsustained ventricular tachycardia (HCC); Syncope and collapse; Automatic implantable cardiac defibrillator in situ from Last 3 Months Allergies Active Allergy Reactions Criticality Noted Date [...] enteric coated tabletIndicati ons:Coronary artery disease involving [place] coronary artery of [place] heart without angina pectoris Take 1 tablet [...] hypertrophic 01/06/2023 Coronary artery disease invo lving [place] coronary artery of [place] heart without angina pectoris 11/25/2016 History of coronary artery stent placement 11/25 Social History Tobacco Use Types Packs/Day Years [...] on file 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 Gender Identity Not on file Sexual Orientation Not on file Last Filed Vital Signs Vital Sign Reading Time Taken Comments Blood Pressure 114/62 04/30/2024 11:14 AM CDT Pulse 85 04/30/2024 11:14 AM CDT Temperature 36.8 C (98.2 F) 02/17/2023 8:22 AM EXCHANGE SPECIALIST Respiratory Rate 16 09/15/2023 11:15 AM CDT Oxygen Saturation 98% 04/30/2024 11:14 AM CDT Inhaled Oxygen Concentration - - Weight 69.9 kg (154 lb) 04/30/2024 11:14 AM CDT Height 167.6 cm (5' 6 ) 04/30/2024 11:14 AM CDT Body Mass Index 24.86 04/30/2024 11:14 AM CDT Plan of Treatment Not on file Medical Devices Implanted Type Area Materials Buyer Device Identifier Shelf Expiration Date Model / Serial / Lot Mas Vascular Defib Cardiac [id number] [place] Implantable 2 Chamber [id number] - [id number] - [id number] Implanted:Qty: 1 on 02/16/2023 by Anthony Prajapati MD at [facility] ICD Left: Infraclavicular Anterior Chest Wall Mas [employer] 01/06/2025 [id number] Q / [id number] / [employer] Durata 6.8fr 65cm True Bipolar Active Fixation Extendable 1 Coil 7122q/65 - [id number] - [id number] Implanted:Qty: 1 on 02/16/2023 by Anthony Prajapati MD at [facility] Lead N/A: Ventricle [employer] 12/07/2025 7122Q/65 / [id number] / [employer] Tendril Sts 6fr 52cm Is-1 Connector Active Fixation Bipolar Soft 2087tc/ - [id number] Implanted:Qty: 1 on 02/16/2023 by Anthony Prajapati MD at [facility] Lead Right: Atrial Appendage [employer] 12/07/2025 2088TC/5 2 / / Procedures Procedure Name Priority [...] ICD. Dx; HOCM, Syncope, NSVT. DOI 02/16/2023-Alo. [place] remote monitoring. Supervising MD: Dr Corcoran. Left [...] to device settings. Office device f/u 05/29/2025. [place] remote f/u 07/31/2024. Doris Montano, RN [facility] Judit Prajapati MD [facility] [place] OCEDURES Final Result from Last 3 Months Insurance AETNA MEDICARE [facility] MEDICARE [facility] MEDICARE Advance Directives For more information, please contact: [phone] * Full Code (Latest Code Status on File) Date Activated Date Inactivated Comments 02/16/2023 10:22 AM 02/17/2023 4:42 PM Care Teams Supervisor Doping Relationship Specialty Start Date End Date Jak Looney DO PCP - General Family Medicine 12/29/21
== END 2024-06-06 11:19 | disposition home or self-care (01) ==
PROVIDERS: PCP Emergency Medicine; Visit Provider Orthopaedic Surgery
DX: M25.521 Pain in right elbow (principal)
CPT/HCPCS: 73080

== ENCOUNTER 2024-07-16 11:08 | Outpatient (CLI) | payer MEDICARE, SELFPAY ==
[2024-07-16 11:48] LABS: Alanine Aminotransferase 27 U/L (6-50); Albumin Level 4.6 g/dL (3.5-5.1); Alkaline Phosphatase 67 U/L (38-126); Anion Gap 8 mmol/L (4-12); Aspartate Amino Transferase 36 U/L (17-59); Blood Urea Nitrogen 30 mg/dL (9-20); Calcium 9.6 mg/dL (8.4-10.2); Carbon Dioxide 26 mmol/L (22-30); Chloride 103 mmol/L (98-107); Cholesterol 127 mg/dL (0-200); Estimated Glomerular Filt Rate 60; Glucose 100 mg/dL (65-110); HDL Direct 48 mg/dL; Potassium 4.8 mmol/L (3.4-5.0); Sodium 137 mmol/L (137-145); Total Protein 7.4 g/dL (6.3-8.2); Triglycerides 122 mg/dL (<150)
[2024-07-16 12:01] LABS: LDL Cholesterol Direct 49 mg/dL
[2024-07-16 12:11] LABS: Vitamin D 25 Hydroxy 41.8 ng/mL
--- OUTSIDE RECORDS SUMMARY | 2024-07-16 12:43 | XMS_ITS | Clinical Summary ---
Author Organization [facility] [place] [address] Address [address] [place] [address] Care Team Providers Care Spent Grain Dryer Name Role Phone Jak Looney Primary Care Provider [phone] Allergies Active Allergy Reactions Criticality Noted Date Comments Ciprofloxacin Redness Low Medications triamterene-hyd roCHLOROthiazid e (MAXZIDE,DYAZID E) 37.5-25 mg per tablet take 1 tablet by oral route every day 0 0 08/24/2012 Active nitroglycerin (NITROSTAT) 0.4 mg SL tablet as needed 06/19/2018 Active omeprazole (PriLOSEC) 40 mg capsule 09/17/2020 Active atorvastatin (LIPITOR) 40 mg tablet Take 1 tablet (40 mg total) by mouth nightly 06/07/2021 Active fluticasone propionate (FLONASE) 50 mcg/actuation nasal spray USE 1 SPRAY(S) IN EACH NOSTRIL EVERY 12 HOURS 06/14/2021 Active lisinopriL (PRINIVIL,ZESTR [place]) 5 mg tablet Take 1 tablet (5 mg total) by mouth daily 12/27/2022 Active aspirin 81 mg enteric coated tabletIndicatio ns:Coronary artery disease involving tribe coronary artery of tribe heart without angina pectoris Take 1 tablet (81 mg total) by mouth daily 30 tablet 11 02/03/2023 Active finasteride (PROSCAR) 5 mg tablet Take 1 tablet (5 mg total) by mouth daily 03/19/2024 Active metoprolol XL (TOPROL-XL) 50 mg extended release tablet Take 1 tablet by mouth once daily 90 tablet 05/16/2024 Active Active Problems Problem Noted Date Diagnosed Date Hypertrophic cardiomyopathy 02/16/2023 Automatic implantable cardiac defibrillator in s itu 02/08/2023 Overview (02/08/2023): Mas Dual ICD. Dx; HOCM, Syncope, NSVT. DOI 02/16/2023-Kahanda. [place] remote monitoring. Nonsustained ventricular tachycardia 02/03/2023 Syncope and collapse 02/03/2023 Cardiomyopathy, hypertrophic 01/06/2023 Coronary artery disease invo lving tribe coronary artery of tribe heart without angina pectoris 11/25/2016 History of coronary artery stent placement 11/25 Encounters Date Type Department Care Team Description 04/30/2024 11:00 AM CDT Office Visit [facility] Medical [facility] Cardiology [address] [place] [address] Rosa Tesfaye NP Cardiomyopathy, hypertrophic (HCC) (Primary Dx); AV block, 2nd degree; Automatic implantable cardiac defibrillator in situ; Coronary artery disease involving [place] coronary artery of tribe heart without angina pectoris 04/25/2024 3:00 PM CDT Ancillary Procedure [facility] Cardiology [address] [place] [address] Cardiomyopathy, hypertrophic (HCC); Nonsustained ventricular tachycardia (HCC); [...] on file 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 Gender Identity Not on file Sexual Orientation Not on file Obstetrics History Last Filed Vital Signs Vital Sign Reading Time Taken Comments Blood Pressure 114/62 04/30/2024 11:14 AM CDT Pulse 85 04/30/2024 11:14 AM CDT Temperature 36.8 C (98.2 F) 02/17/2023 8:22 AM ROOTER OPERATOR Respiratory Rate 16 09/15/2023 11:15 AM CDT Oxygen Saturation 98% 04/30/2024 11:14 AM CDT Inhaled Oxygen Concentration - - Weight 69.9 kg (154 lb) 04/30/2024 11:14 AM CDT Height 167.6 cm (5' 6) 04/30/2024 11:14 AM CDT Body Mass Index [...] Ended) 2024 Medical Devices Implanted Type Area Director Personal Device Identifier Shelf Expiration Date Model / Serial / Lot Mas Vascular Defib Cardiac Pos59to [id number] [place] Implantable 2 Chamber [id number] - [id number] - [id number] Implanted:Qty: 1 on 02/16/2023 by Anthony Prajapati MD at [facility] ICD Left: Infraclavicular Anterior Chest Wall Mas [employer]ascular 01/06/2025 [id number] Q / [id number] / [employer] Durata 6.8fr 65cm True Bipolar Active Fixation Extendable 1 Coil 7122q/65 - [id number] - [id number] Implanted:Qty: 1 on 02/16/2023 by Anthony Prajapati MD at [facility] Lead N/A: Ventricle [employer] 12/07/2025 7122Q/65 / [id number] / [employer] Tendril Sts 6fr 52cm Is-1 Connector Active Fixation Bipolar Soft / - [id number] Implanted:Qty: 1 on 02/16/2023 by Anthony Prajapati MD at [facility] Lead Right: Atrial Appendage St Nakul [...] ICD. Dx; HOCM, Syncope, NSVT. DOI 02/16/2023-Alo. [place] remote monitoring. Supervising MD: Dr Corcoran. Left [...] to device settings. Office device f/u 05/29/2025. [place] remote f/u 07/31/2024. Doris Montano, RN Anthony Prajapati MD [facility] [place] [facility] Final Result from Last 3 Months Insurance AETNA MEDICARE [facility] MEDICARE Advance Directives For more information, please contact: [phone] * Full Code (Latest Code Status on File) Date Activated Date Inactivated Comments 02/16/2023 10:22 AM 02/17/2023 4:42 PM Care Teams Spent Grain Dryer Relationship Specialty Start Date End Date Jak Looney DO PCP - General Family Medicine 12/29/21
--- OUTSIDE RECORDS SUMMARY | 2024-07-16 12:43 | XMS_ITS | Referral Summary ---
Author Organization [place] [address] Address [address] [address] Care Team Providers Care Manager Technical Support Name Role Phone MorganJak ann Primary Care Provider [phone] Encounters Date Type Department Care Team Description 04/30/2024 11:00 AM CDT Office Visit [facility] Cardiology [address] [place] [address] [address] [place] [address] Rosa Tesfaye NP Cardiomyopathy, hypertrophic (HCC) (Primary Dx); AV block, 2nd degree; Automatic implantable cardiac defibrillator in situ; Coronary artery disease involving [place] coronary artery of [place] heart without angina pectoris 04/25/2024 3:00 PM CDT Ancillary Procedure [facility] Cardiology [address] [place] [address] [address] [place] [address] Cardiomyopathy, hypertrophic (HCC); Nonsustained ventricular [...] enteric coated tabletIndicatio ns:Coronary artery disease involving [place] coronary artery of [place] heart without angina pectoris Take 1 tablet [...] hypertrophic 01/06/2023 Coronary artery disease invo lving hoon[place] coronary artery of [place] heart without angina pectoris 11/25/2016 History of [...] on file 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 Gender Identity Not on file Sexual Orientation Not on file Last Filed Vital Signs Vital Sign Reading Time Taken Comments Blood Pressure 114/62 04/30/2024 11:14 AM CDT Pulse 85 04/30/2024 11:14 AM CDT Temperature 36.8 C (98.2 F) 02/17/2023 8:22 AM 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 Respiratory Rate 16 09/15/2023 11:15 AM CDT Oxygen Saturation 98% 04/30/2024 11:14 AM CDT Inhaled Oxygen Concentration - - Weight 69.9 kg (154 lb) 04/30/2024 11:14 AM CDT Height 167.6 cm (5' 6) 04/30/2024 11:14 AM CDT Body Mass Index 24.86 04/30/2024 11:14 AM CDT Plan of Treatment Not on file Medical Devices Implanted Type Area Rn Radiation Oncology Device Identifier Shelf Expiration Date Model / Serial / Lot Mas Vascular Defib Cardiac [id number] Hollister Implantable 2 Chamber [id number] - [id number] - [id number] Implanted:Qty: 1 on 02/16/2023 by Anthony Prajapati MD at [facility] ICD Left: Infraclavicular Anterior Chest Wall [employer] 01/06/2025 [id number] / [id number] / [employer] Durata 6.8fr 65cm True Bipolar Active Fixation Extendable 1 Coil 7122q/65 - [id number] - [id number] Implanted:Qty: 1 on 02/16/2023 by Anthony Prajapati MD at [facility] Lead N/A: Ventricle [employer] 12/07/2025 7122Q/65 / [id number] / [employer] Tendril Sts 6fr 52cm Is-1 Connector Active Fixation Bipolar Soft / - [id number] Implanted:Qty: 1 on 02/16/2023 by Anthony Prajapati MD at [facility] Lead Right: Atrial Appendage St [...] to device settings. Office device f/u 05/29/2025. [place] remote f/u 07/31/2024. Doris Montano, RN [facility] Judit Prajapati MD [facility] [place] OCEDURES Final Result from Last 3 Months Insurance [employer] MEDICARE [facility] MEDICARE Address: [facility] [id number] [place] [address] Advance Directives For more information, please contact: [phone] * Full Code (Latest Code Status on File) Date Activated Date Inactivated Comments 02/16/2023 10:22 AM 02/17/2023 4:42 PM Care Teams Manager Technical Support Relationship Specialty Start Date End Date Jak Looney DO PCP - General Family Medicine 12/29/21
== END 2024-07-16 11:09 | disposition home or self-care (01) ==
LOC: ANHLAB 11:10
PROVIDERS: PCP Emergency Medicine; Visit Provider Emergency Medicine
DX: E78.5 Hyperlipidemia, unspecified (principal); E03.9 Hypothyroidism, unspecified; E55.9 Vitamin D deficiency, unspecified
CPT/HCPCS: 36415; 80053; 80061; 82306; 84443

== ENCOUNTER 2024-08-04 11:07 | Emergency (ER) | payer MEDICARE, SELFPAY ==
--- NOTE | 2024-08-04 11:42 | ED.SKABFB ---
HPI - Skin/Abscess/Foreign Bdy General Chief complaint: Skin/Abscess/Foreign Body Stated complaint: rash Time Seen by Provider: 08/04/24 11:45 Source: patient Mode of arrival: ambulatory Limitations: no limitations History of Present Illness HPI narrative: Nnamdi is an 79-year-old male patient presenting to the clinic today with complaints of a abdomen rash. He reports that the rash developed in the fold of his abdomen last night. Rash is itchy and mildly red. Denies any drainage. Denies any fevers, chills, or body aches. No changes in lotions, soaps, shampoos, detergents, foods, or medications. No environmental changes. Related Data Home Medications ?Medication ?Instructions ?Recorded ?Confirmed ?Last Taken ?Type calcium 600 mg PO DAILY 03/30/21 07/11/24 Unknown History aspirin 81 mg tablet 81 mg PO DAILY 12/26/22 07/11/24 Unknown History Complete Multi 0.25 tablet BYMOUTH DAILY 07/11/24 07/11/24 Unknown History Allergies Allergy/AdvReac Type Severity Reaction Status Date / Time No Known Allergies Allergy Verified 08/04/24 11:42 Review of Systems Review of Systems: Pertinent positives per HPI. Patient denies any fever, chills, headache, visual changes, dizziness, cough, shortness of breath, chest pain, palpitations, nausea, vomiting, diarrhea, constipation, abdominal pain, or any urinary issues. [facility] Past Medical History Medical History Skin lesion Hypertrophic cardiomyopathy Fungal toenail infection Abnormal TSH Abnormal TSH CAD (coronary artery disease) RCA stenting January 2012 Family History Family History Mother Patient's mother is , Onset Age: 95 Father Patient's father is , Onset Age: 90 Grandparent Family history of malignant neoplasm of breast Social History Social History Social History: caffeine 3-4 glasses of tea daily Smoking status: Never smoker Alcohol intake: never Substance use: never Substance use type: does not use Do You Feel Safe in your Home?: Yes Lack of Transportation: No Lack of Food: Never True Current Housing: I Have Housing Concerned About Future Housing: No Difficulty Paying Gas/Electric Bills: No Difficulty Paying for Meds: No Currently Unemployed: No Education: Bachelor's Degree Difficulty w/ Childcare or Family Care: No Living arrangements: alone Occupation/Education: retired Gender identity (if verbalized by the patient): Male Spiritual care concerns: No Agree to blood products: Yes Comments At the time of my signature, I reviewed and agree with the nursing past medical, surgical, social, and family history. There is no relevant family history pertinent to the patient complaint. Exam Narrative: General: Well-developed, well nourished, in no apparent distress Head: Normocephalic, atraumatic. Cardio: Regular rate and rhythm, s1 and s2 normal, no murmur appreciated. Resp: Clear to auscultation bilaterally, no rhonchi, rales, wheezing or rubs. Integumentary: [place], warm, and dry, intact without lesion, red, scaly, itchy, glistening rash to the mid abdomen fold Course Course Emergency Course: Portions of this record may have been created with voice recognition software. Level of Care: Express Care Visit Vital Signs Vital signs: Vital Signs Temperature 36.6 C 08/04/24 11:43 Pulse Rate 74 08/04/24 11:43 Respiratory Rate 16 08/04/24 11:43 Blood Pressure 121/86 08/04/24 11:43 Pulse Oximetry 98 08/04/24 11:43 Oxygen Delivery Room Air 08/04/24 11:43 Temperature 36.6 C 08/04/24 11:43 Pulse Rate 74 08/04/24 11:43 Respiratory Rate 16 08/04/24 11:43 Blood Pressure 121/86 08/04/24 11:43 Pulse Oximetry 98 08/04/24 11:43 Oxygen Delivery Room Air 08/04/24 11:43 Vital signs reviewed MDM - Skin/Abscess/Foreign Bdy MDM Narrative Medical decision making narrative: At the time of visit patient is resting comfortably on the exam table. Patient appears to be nontoxic. Plan: I suspect patient has a probable skin yeast infection to the abdominal fold. Will send in prescription for nystatin/triamcinolone cream. Supportive measures were discussed with the patient and they voiced understanding discharge instructions and agrees to treatment plan. Return precautions reviewed Differential Diagnosis Differential diagnosis: Likely abscess of skin or subcutaneous tissue, viral exanthem, dermatophytosis, urticaria, herpes zoster, allergic reaction to drug, cellulitis, eczema, insect bites, impetigo, contact dermatitis and other (Yeast infection) Discharge Plan Discharge Clinical Impression: Skin yeast infection Patient Disposition: Home Condition: Stable Instructions: Antibiotic Form, Skin Yeast Infection (ED) Additional Instructions: Skin yeast infection verses dermatitis. Keep area clean and dry Will send in prescription for nystatin/triamcinolone cream Follow-up with your PCP if symptoms persist or go to the emergency room if symptoms worsen Patient Language: Gambian Prescriptions: New nystatin-triamcinolone 100,000-0.1 unit/g-% cream 1 applic topical BID 14 Days Qty: 60 0RF Rx Instructions: May substitute if needed- may give nystatin and triamcinolone separately and have the patient mix and apply No Action calcium 600 mg PO DAILY Complete Multi 0.25 tablet BYMOUTH DAILY aspirin 81 mg Tablet 81 mg PO DAILY nitroglycerin 0.4 mg tablet, sublingual See Rx Instructions .ROUTE .COMPLEX Qty: 25 5RF Dose Instruction: DISSOLVE ONE TABLET UNDER THE TONGUE EVERY 5 MINUTES NEEDED FOR CHEST PAIN. DO NOT EXCEED A TOTAL OF 3 DOSES IN 15 MINUTES Rx Instructions: DISSOLVE ONE TABLET UNDER THE TONGUE EVERY 5 MINUTES NEEDED FOR CHEST PAIN. DO NOT EXCEED A TOTAL OF 3 DOSES IN 15 MINUTES lisinopril 5 mg tablet 5 mg PO QAM Qty: 90 2RF finasteride 5 mg tablet 5 mg PO DAILY Qty: 90 2RF omeprazole 20 mg capsule,delayed release(DR/EC) 40 mg PO DAILY Qty: 180 2RF atorvastatin 40 mg tablet 40 mg PO HS Qty: 90 2RF triamterene-hydrochlorothiazid 37.5-25 mg tablet 0.5 tablet PO QAM Qty: 45 2RF fluticasone propionate [Flonase Allergy Relief] 50 mcg/actuation spray,suspension 1 spray intranasal Q12H Qty: 48 2RF Rx Instructions: administer into each nostril Follow-up/Referrals: Sai Townsend MD [Primary Care Provider] - Time of Disposition: 11:44 Quality NIHSS Nursing Documentation ED NIHSS nursing documentation: reviewed/agree
[2024-08-04 11:43] VITALS: BP 121/86; PULSE 74; RESP 16; TEMP 36.6; O2SAT 98
== END 2024-08-04 11:55 | disposition home or self-care (01) ==
PROVIDERS: Emergency Provider Nurse Practitioner Family; PCP Emergency Medicine
DX: B37.2 Candidiasis of skin and nail (principal); I25.10 Atherosclerotic heart disease of native coronary artery without angina pectoris; I42.2 Other hypertrophic cardiomyopathy; Z79.82 Long term (current) use of aspirin
CPT/HCPCS: 99213; G0463

== ENCOUNTER 2024-08-06 08:39 | Outpatient (CLI) | payer MEDICARE, SELFPAY ==
--- NOTE | ~2024-08-06 | US_ITS ---
EXAMINATION: US art doppler w press LE BI DATE: 08/06/2024 09:52 INDICATION: Peripheral vascular disease TECHNIQUE: Segmental pressures and plethysmographic and Doppler waveforms of the brachial and lower e xtremity arteries were obtained. COMPARISON: None. FINDINGS: Right and left brachial artery pressures of 114 mm Hg and 128 mm Hg, respectively, are concordant (no rmal difference <= 30 mmHg). The right and left high-thigh pressure indices are 1.07 and 1.03, respec tively (normal > 1.2). The right ankle-brachial index (LEIDY) is 1.06 (normal >= 0.9-1). The right great toe-brachial index (T BI) is 0.52 (normal >= 0.6-0.8). The right lower extremity segmental pressure gradients are normal (n ormal gradients <= 20-30 mmHg between adjacent levels on the same leg or the same levels on the two l egs). Arterial waveforms are biphasic with brisk systolic upstrokes throughout the arteries of the ri ght lower limb. The left LEIDY is 1.05. The left TBI is 0.48. The left lower extremity segmental pressure gradients are increased between the left posterior tibial and dorsalis pedis arteries and the ifiqa-fjn-rpti popli teal artery. Arterial waveforms are biphasic with brisk systolic upstrokes throughout the arteries of the left lower limb. IMPRESSION: 1. Arterial occlusive disease to the bilateral lower limbs with normal bilateral ABIs but mildly decr eased bilateral ABIs and high thigh pressure indices. Reviewed, dictated and finalized at location B. IMPRESSION: 1. Arterial occlusive disease to the bilateral lower limbs with normal bilatera l ABIs but mildly decreased bilateral ABIs and high thigh pressure indices.
== END 2024-08-06 08:40 | disposition home or self-care (01) ==
PROVIDERS: PCP Emergency Medicine; Visit Provider Podiatrist Foot & Ankle Surgery
DX: I73.9 Peripheral vascular disease, unspecified (principal); I77.1 Stricture of artery
CPT/HCPCS: 93923

== ENCOUNTER 2024-11-24 13:25 | Emergency (ER) | payer MEDICARE, SELFPAY ==
--- NOTE | 2024-11-24 13:27 | ED.SKABFB ---
HPI - Skin/Abscess/Foreign Bdy General Chief complaint: Skin/Abscess/Foreign Body Stated complaint: Rash Time Seen by Provider: 11/24/24 13:27 Source: patient Mode of arrival: ambulatory Limitations: no limitations History of Present Illness HPI narrative: Patient is a 79-year-old male who presents with red, itchy rash to neck for 2-3 weeks. Patient states symptoms wax and wane. Does use cologne daily but denies any new cologne, soaps, detergents. Related Data Home Medications ?Medication ?Instructions ?Recorded ?Confirmed ?Last Taken ?Type calcium 600 mg PO DAILY 03/30/21 10/17/24 Unknown History aspirin 81 mg tablet 81 mg PO DAILY 12/26/22 10/17/24 Unknown History Complete Multi 0.25 tablet BYMOUTH DAILY 07/11/24 10/17/24 Unknown History Allergies Allergy/AdvReac Type Severity Reaction Status Date / Time No Known Allergies Allergy Verified 11/24/24 13:38 Review of Systems Review of Systems: All systems reviewed & are unremarkable except as noted in HPI and below Constitutional: Constitutional: Denies body ache(s), Denies chills, Denies fatigue, Denies fever(s), Denies headache(s), Denies malaise and Denies weakness Eyes: Eyes: Denies blurry vision, Denies irritation and Denies loss of vision ENT: Denies otalgia, Denies headache(s), Denies nasal discharge, Denies sinus pain and Denies sore throat Cardiovascular: Cardiovascular: Denies chest pain, Denies irregular heart rhythm and Denies dyspnea Respiratory: Respiratory: Denies dyspnea Gastrointestinal: Gastrointestinal: Denies abdominal pain, Denies melena, Denies hematochezia, Denies diarrhea, Denies nausea and Denies vomiting Musculoskeletal: Musculoskeletal: Denies back pain, Denies myalgias and Denies arthralgias Integumentary/Breasts: Skin/Breast: Reports pruritus and Reports rash Neurologic: Denies headache(s), Denies loss of vision and Denies weakness Psychiatric: Psychiatric: Reports no additional psychiatric complaints Endocrine: Endocrine: Denies fatigue PMFSH Past Medical History Medical History Skin lesion Hypertrophic cardiomyopathy Fungal toenail infection Abnormal TSH Abnormal TSH CAD (coronary artery disease) RCA stenting January 2012 Family History Family History Mother Patient's mother is , Onset Age: 95 Father Patient's father is , Onset Age: 90 Grandparent Family history of malignant neoplasm of breast Social History Social History Social History: caffeine 3-4 glasses of tea daily Smoking status: Never smoker Alcohol intake: never Substance use: never Substance use type: does not use Do You Feel Safe in your Home?: Yes Lack of Transportation: No Lack of Food: Never True Current Housing: I Have Housing Concerned About Future Housing: No Difficulty Paying Gas/Electric Bills: No Difficulty Paying for Meds: No Currently Unemployed: No Education: Bachelor's Degree Difficulty w/ Childcare or Family Care: No Living arrangements: alone Occupation/Education: retired Gender identity (if verbalized by the patient): Male Spiritual care concerns: No Agree to blood products: Yes Comments At time of signature, agree with nursing past medical, surgical, social and family history. There is no relevant family history pertinent to the presenting complaint. Exam Const: General: cooperative, healthy appearing, comfortable, no acute distress and well nourished Nutritional Appearance: well nourished Orientation/consciousness: patient oriented x3 Limitations: no limitations HENMT: Head: normal to inspection, normocephalic and atraumatic Ears: hearing grossly normal bilaterally and external ears normal Face/Nose/Sinus: Normal external nose present, normal facial exam and face symmetric Face and sinus: normal facial exam and face symmetric Mouth: Yes lip normal Eyes: General: appearance normal, both eyes and all related structures Alignment and Position: alignment normal and position normal Periorbital: periorbital findings normal Eyelids: eyelids normal Pupils: Equal, round and reactive pupils present EOM: EOMs intact bilaterally Neck: Neck: normal visual inspection, full ROM and supple Chest: Chest palpation & inspection: normal inspection of the chest Resp: Effort & Inspection: normal respiratory effort and able to speak in complete sentences Auscultation: clear to auscultation bilaterally Cardio: Rate: regular rate Rhythm: regular rhythm Heart sounds: S1 normal heart sound present and S2 normal heart sound present GI: Inspection: normal to inspection Skin: General skin exam: normal color and rashes Rashes: rashes noted macules bilateral anterior neck arrangement grouped, borders sharp and irregular, color red and surface erythematous and warm Neuro: General: patient oriented x3 and moves all extremities Cranial nerves: Yes Equal, round and reactive pupils present Speech: normal speech Gait exam (Neuro): Normal gait present Extrem: General: normal to inspection, full ROM and no edema Psych: Appearance: grossly normal and well kempt Mental Status: mental status grossly normal Speech and movement: Normal speech and movement present Affect: normal affect Attitude: cooperative Thought process: Normal thought process present Course Course Emergency Course: Patient is aware of diagnosis, understands and agrees to treatment plan. Anticipatory guidance given. Patient agrees to follow-up as directed and is aware of reasons to seek care at the emergency department. Portions of this record may have been created with voice recognition software Level of Care: Express Care Visit Vital Signs Vital signs: Reviewed MDM - Skin/Abscess/Foreign Bdy MDM Narrative Medical decision making narrative: Discuss the potential cause cologne on neck creating an allergic reaction over time. Patient follow-up with press setter if improving with steroids Pt well hydrated appearing, in no respiratory distress, hemodynamically stable. Recommend supportive care. The patient is stable at time of discharge the clinical impression was discussed and the patient was given the opportunity to ask questions, which were addressed as completely as possible given the information available at present. Anticipatory guidance and return to care precautions were discussed and the importance of primary care follow-up was stressed and encouraged. The patient voiced understanding of the plan, indications to return, and the need for follow-up. Exam findings show no acute concerns or changes Patient is appropriate for outpatient treatment and follow-up. Differential Diagnosis Differential diagnosis: Likely viral exanthem, urticaria, cellulitis and contact dermatitis Medical Records Attestation: I reviewed the patient's medical records. Discharge Plan Discharge Clinical Impression: Contact dermatitis Patient Disposition: Home Condition: Stable Instructions: Contact Dermatitis (ED) Additional Instructions: Take steroid per package instructions. Take Claritin, Zyrtec or Indigo in the morning Wash the skin thoroughly with soap and cool water as soon as possible. Scrub under the fingernails with a brush to prevent spreading to other parts of the body by touching or scratching. IF symptoms get worse to follow up with your primary care provider or seek ER visit if you developing difficulty breathing, weakness, dizziness Patient Language: Greek Prescriptions: New methylprednisolone [Medrol (Gabriel)] 4 mg tablets,dose pack See Rx Instructions .ROUTE .COMPLEX Qty: 21 0RF Rx Instructions: orally per package directions No Action calcium 600 mg PO DAILY Complete Multi 0.25 tablet BYMOUTH DAILY aspirin 81 mg Tablet 81 mg PO DAILY finasteride 5 mg tablet 5 mg PO DAILY Qty: 90 2RF omeprazole 20 mg capsule,delayed release(DR/EC) 40 mg PO DAILY Qty: 180 2RF atorvastatin 40 mg tablet 40 mg PO HS Qty: 90 2RF triamterene-hydrochlorothiazid 37.5-25 mg tablet 0.5 tablet PO QAM Qty: 45 2RF fluticasone propionate [Flonase Allergy Relief] 50 mcg/actuation spray,suspension 1 spray intranasal Q12H Qty: 48 2RF Rx Instructions: administer into each nostril nitroglycerin 0.4 mg tablet, sublingual See Rx Instructions .ROUTE .COMPLEX Qty: 25 5RF Dose Instruction: DISSOLVE ONE TABLET UNDER THE TONGUE EVERY 5 MINUTES NEEDED FOR CHEST PAIN. DO NOT EXCEED A TOTAL OF 3 DOSES IN 15 MINUTES Rx Instructions: DISSOLVE ONE TABLET UNDER THE TONGUE EVERY 5 MINUTES NEEDED FOR CHEST PAIN. DO NOT EXCEED A TOTAL OF 3 DOSES IN 15 MINUTES lisinopril 5 mg tablet See Rx Instructions .ROUTE .COMPLEX Qty: 90 2RF Dose Instruction: TAKE 1 TABLET BY MOUTH IN THE MORNING Rx Instructions: TAKE 1 TABLET BY MOUTH IN THE MORNING Follow-up/Referrals: Sai Townsend MD [Primary Care Provider, Internal Medicine] - 3 Days Time of Disposition: 14:18
[2024-11-24 13:37] VITALS: BP 107/57; PULSE 71; RESP 16; TEMP 36.1; O2SAT 97
== END 2024-11-24 14:26 | disposition home or self-care (01) ==
PROVIDERS: Emergency Provider Nurse Practitioner Family; PCP Emergency Medicine
DX: L25.9 Unspecified contact dermatitis, unspecified cause (principal); I42.2 Other hypertrophic cardiomyopathy; I25.10 Atherosclerotic heart disease of native coronary artery without angina pectoris; Z79.82 Long term (current) use of aspirin
CPT/HCPCS: 99213; G0463